=== PATIENT | male | born 1935 | race Caucasian/White ===

== ENCOUNTER 2017-04-26 06:11 | Inpatient (IN) | payer BC, MEDICARE ==
[2017-04-26] MEDS ORDERED: ASPIRIN 81 MG TABLET, CHEWABLE PO ONE (06:16)
[2017-04-26] MEDS ORDERED: NITROGLYCERIN/D5W 50 MG/250 ML RTUINJ IV ONE (06:17)
[2017-04-26] MEDS ORDERED: MAGNESIUM SULFATE/D5W 2 GM/200 ML RTUPB IV ONE (06:18)
[2017-04-26] MEDS ORDERED: MAGNESIUM SULFATE/D5W 1 GM/100 ML RTUPB IV ONE (06:31)
[2017-04-26 06:35] LABS: ABSOLUTE BASOPHILS # (AUTO) 0.1 10^3/uL (0.0-0.2); ABSOLUTE EOSINOPHILS # (AUTO) 0.3 10^3/uL (0.0-0.6); ABSOLUTE LYMPHOCYTES (AUTO) 2.4 10^3/uL (0.5-4.7); ABSOLUTE MONOCYTES (AUTO) 0.8 10^3/uL (0.1-1.4); ABSOLUTE NEUT (AUTO) 4.7 10^3/uL (1.7-8.2); BASOPHILS % (AUTO) 1.1 % (0-2); EOSINOPHILS % (AUTO) 3.9 % (0-6); HEMATOCRIT 47.6 % (37.9-51.0); HEMOGLOBIN 15.8 g/dL (13.5-17.0); LYMPHOCYTES % (AUTO) 28.6 % (13-45); MEAN CORPUSCULAR HEMOGLOBIN 31.6 pg (27.0-33.4); MEAN CORPUSCULAR HGB CONC 33.2 g/dL (32.0-36.0); MEAN CORPUSCULAR VOLUME 95 fl (80-97); MONOCYTES % (AUTO) 9.8 % (3-13); PLATELET COUNT 279 10^3/uL (150-450); RED BLOOD COUNT 5.01 10^6/uL (4.35-5.55); RED CELL DISTRIBUTION WIDTH 14.2 % (11.5-14.0); SEGMENTED NEUTROPHILS % (AUTO) 56.6 % (42-78); TOTAL CELLS COUNTED % (AUTO) 100 %; VENOUS BLOOD BASE EXCESS -4.4 mmol/L; VENOUS BLOOD HCO3 23.2 mmol/L (20-32); VENOUS BLOOD PCO2 51.9 mmHg (35-63); VENOUS BLOOD PH 7.27 (7.30-7.42); WHITE BLOOD COUNT 8.3 10^3/uL (4.0-10.5)
[2017-04-26 06:41] LABS: PROTHROMBIN TIME 12.8 SEC (11.4-15.4)
[2017-04-26 06:50] LABS: ALANINE AMINOTRANSFERASE 45 U/L (21-72); ALBUMIN 4.9 g/dL (3.5-5.0); ALKALINE PHOSPHATASE 88 U/L (38-126); ANION GAP 16 (5-19); ASPARTATE AMINO TRANSFERASE 31 U/L (17-59); BILIRUBIN,DIRECT 0.6 mg/dL (0.0-0.4); BLOOD UREA NITROGEN 27 mg/dL (7-20); CALCIUM 10.1 mg/dL (8.4-10.2); CARBON DIOXIDE 22 mmol/L (22-30); CHLORIDE 110 mmol/L (98-107); CREATINE KINASE 77 U/L (55-170); GLUCOSE 115 mg/dL (75-110); LIPASE 121.7 U/L (23-300); POTASSIUM 4.7 mmol/L (3.6-5.0); TOTAL PROTEIN 7.9 g/dL (6.3-8.2)
--- NOTE | 2017-04-26 06:51 | RADIOLOGY REPORT (SQ) ---
EXAM DESCRIPTION: CHEST SINGLE VIEW CLINICAL HISTORY: cxr COMPARISON: None. FINDINGS: Single frontal view of the chest. Positive thoracic aorta. Cardiomegaly. Pulmonary vascular congestion with bilateral interstitial opacities. No pneumothorax or definite pleural effusion. Leads overlie the chest. No acute osseous abnormality. Upper abdominal soft tissues are unremarkable. IMPRESSION: 1. Cardiomegaly with pulmonary vascular congestion and possible interstitial edema.
[2017-04-26 07:01] LABS: CREATINE KINASE MB 1.87 ng/mL (<4.55)
[2017-04-26 07:03] LABS: TROPONIN I 0.078 ng/mL
[2017-04-26] MEDS ORDERED: FUROSEMIDE INJ/PF 40 MG/4 ML SDV IV ONE (07:08)
[2017-04-26] MEDS ORDERED: FUROSEMIDE INJ/PF 20 MG/2 ML SDV IV ONE (07:09)
--- NOTE | 2017-04-26 07:40 | ER Document Report ---
ED General - General Chief Complaint: Respiratory Distress Stated Complaint: DIFFICULTY BREATHING Time Seen by Provider: 04/26/17 06:16 TRAVEL OUTSIDE OF THE [place] IN LAST 30 DAYS: No - HPI Patient complains to provider of: Respiratory distress Notes: Patient coming in for evaluation of respiratory distress. Patient according to EMS had shortness of breath over the last few days worse tonight. Patient had some wheezing was given a albuterol treatment according to EMS provider worsen after albuterol treatment. Upon my evaluation patient is tachypneic with retractions patient's blood pressure on the monitor and according to EMS was triple liver triple. Patient was able to indicate that he does not have any medical issues no chest pain at this time. Patient's lung sounds and presentation were most consistent with flash pulmonary edema therefore we initiated high-dose nitro significant respiratory distress much of the initial HPI was difficult to obtain along with BiPAP. Otherwise because of the patient' s - Related Data Allergies/Adverse Reactions: No Known Allergies Allergy (Verified 04/26/17 06:19) Past Medical History - Social History Smoking Status: Former Smoker Family History: Reviewed & Not Pertinent Patient has suicidal ideation: No Patient has homicidal ideation: No Renal/ Medical History: Denies: Hx Peritoneal Dialysis Review of Systems - Review of Systems Constitutional: No symptoms reported EENT: No symptoms reported Cardiovascular: No symptoms reported Respiratory: Short of breath Gastrointestinal: No symptoms reported Genitourinary: No symptoms reported Male Genitourinary: No symptoms reported Musculoskeletal: No symptoms reported Skin: No symptoms reported Hematologic/Lymphatic: No symptoms reported Neurological/Psychological: No symptoms reported -: Yes All other systems reviewed and negative Physical Exam - Vital signs Vitals: Resp 35 H 04/26/17 06:16 Interpretation: Hypertensive, Tachycardic, Tachypneic - General General appearance: Appears well, Alert - HEENT Head: Normocephalic, Atraumatic Eyes: Normal Pupils: PERRL - Respiratory Respiratory status: Respiratory distress, Tachypnea Chest status: Nontender Breath sounds: Rales, Rhonchi, Wheezing Chest palpation: Normal - Cardiovascular Rhythm: Regular Heart sounds: Normal auscultation Murmur: No - Abdominal Inspection: Normal Distension: No distension Bowel sounds: Normal Tenderness: Nontender Organomegaly: No organomegaly - Back Back: Normal, Nontender - Extremities General upper extremity: Normal inspection, Nontender, Normal color, Normal ROM , Normal temperature General lower extremity: Normal inspection, Nontender, Normal color, Normal ROM , Normal temperature, Normal weight bearing. No: Zafar's sign - Neurological Neuro grossly intact: Yes Cognition: Normal Orientation: AAOx4 Do Coma Scale Eye Opening: Spontaneous Do Coma Scale Verbal: Oriented Do Coma Scale Motor: Obeys Commands Do Coma Scale Total: 15 Speech: Normal Motor strength normal: LUE, RUE, LLE, RLE Sensory: Normal - Psychological Associated symptoms: Normal affect, Normal mood - Skin Skin Temperature: Warm Skin Moisture: Dry Skin Color: Normal Course - Re-evaluation Re-evalutation: 04/26/17 13:44 Patient is initial presentation initial HPI was consistent with flash pulmonary edema. Patient was given 1 mg of nitroglycerin IV push followed by BiPAP. Blood pressures decreased along with tachypnea and patient's heart rate. Patient breathing much better a few minutes after initiation of his treatment. Patient denies any past medical history no cardiac issues states history of smoking only medication the patient takes his omeprazole and Aleve. Patient is laboratory studies and chest x-ray were consistent with flash pulmonary edema patient was given a dose of Lasix prior to laboratory studies. Patient greatly improved however will admit the patient for further evaluation - Vital Signs Vital signs: Temp Pulse Resp BP Pulse Ox 97.9 F 86 16 123/52 L 91 L 04/26/17 12:27 04/26/17 12:27 04/26/17 12:27 04/26/17 12:27 04/26/17 12:27 - Laboratory Result Diagrams: 04/26/17 06:20 04/26/17 06:20 Laboratory results interpreted by me: 04/26/17 04/26/17 04/26/17 06:20 06:20 06:20 RDW 14.2 H VBG pH Sodium 148.0 H Chloride 110 H BUN 27 H Creatinine 1.51 H Est GFR ( Amer) 54 L Est GFR (Non-Af Amer) 45 L Glucose 115 H Direct Bilirubin 0.6 H NT-Pro-B Natriuret Pep 6700 H 04/26/17 06:20 RDW VBG pH 7.27 L Sodium Chloride BUN Creatinine Est GFR ( Amer) Est GFR (Non-Af Amer) Glucose Direct Bilirubin NT-Pro-B Natriuret Pep Critical Care Note - Critical Care Note Total time excluding time spent on procedures (mins): 35 Comments: multiple evaluation for patient with respiratory distress Discharge - Discharge Clinical Impression: Respiratory distress, Hypernatremia, CKD (chronic kidney disease), Hypertensive emergency, Dyspnea Pulmonary edema Qualifiers: Chronicity: acute Qualified Code(s): J81.0 - Acute pulmonary edema Condition: Good Disposition: ADMITTED INPATIENT Admitting Provider: Hospitalist - [facility] Admitted: [facility]
[2017-04-26] MEDS ORDERED: ACETAMINOPHEN 325 MG TABLET PO PRN (08:14)
[2017-04-26] MEDS ORDERED: HYDRALAZINE HCL INJ/PF 20 MG/1 ML SDV IV PRN (08:37)
--- NOTE | 2017-04-26 08:47 | PDOC H&P ---
History of Present Illness Admission Date/PCP: 04/26/2017 No PCP Patient complains of: Shortness of breath History of Present Illness: LAURENT TREJO is a 81 year old male with emergency room with shortness of breath for the last few days. Patient states that he cannot state exactly when it started but he reports that he normally takes long walks at home in the evening. Patient noted over the last 5-10 days that he has had to stop to take deep breaths because he became short of breath. Patient states that last night it became very bad and he sat up in bed due to severity of shortness of breath. Patient states that [place] and once he got there had difficulty breathing. Patient denied any chest pain did admit to abdominal discomfort patient states that he was transported to the hospital from work. Patient reports that he works 3 hours 3 times a week. Patient reports that he has not seen a PCP in over 10 years. Past Medical History Medical History: None EENT Medical History: Reports: None Neurological Medical History: Reports: None Endocrine Medical History: Reports: None Renal/ Medical History: Reports: None Malignancy Medical History: Reports: None GI Medical History: Reports: None Musculoskeltal Medical History: Reports: None Skin Medical History: Reports: None Psychiatric Medical History: Reports: None Traumatic Medical History: Reports: None Hematology: Reports: None Infectious Medical History: Reports: None Past Surgical History Past Surgical History: Reports: Appendectomy Social History Information Source: Patient Lives with: Alone Smoking Status: Former Smoker Frequency of Alcohol Use: None Hx Recreational Drug Use: No Hx Prescription Drug Abuse: No - Advance Directive Resuscitation Status: Full Code Family History Family History: CAD Parental Family History Reviewed: Yes Children Family History Reviewed: Yes Sibling(s) Family History Reviewed.: Yes Medication/Allergy Allergies/Adverse Reactions: No Known Allergies Allergy (Verified 04/26/17 06:19) Review of Systems Constitutional: ABSENT: chills, fever(s), headache(s), weight gain, weight loss Eyes: ABSENT: visual disturbances Ears: ABSENT: hearing changes Cardiovascular: PRESENT: dyspnea on exertion. ABSENT: chest pain, edema, orthropnea, palpitations Respiratory: PRESENT: dyspnea Gastrointestinal: PRESENT: abdominal pain Genitourinary: ABSENT: dysuria, hematuria Musculoskeletal: ABSENT: joint swelling Integumentary: ABSENT: rash, wounds Neurological: ABSENT: abnormal gait, abnormal speech, confusion, dizziness, focal weakness, syncope Psychiatric: ABSENT: anxiety, depression, homidical ideation, suicidal ideation Endocrine: ABSENT: cold intolerance, heat intolerance, polydipsia, polyuria Hematologic/Lymphatic: ABSENT: easy bleeding, easy bruising Physical Exam Vital Signs: Temp Pulse Resp BP Pulse Ox 97.6 F 18 152/87 H 93 04/26/17 06:22 04/26/17 08:31 04/26/17 08:31 04/26/17 08:31 Intake & Output 04/25/17 04/26/17 04/27/17 06:59 06:59 06:59 Weight 78.7 kg General appearance: PRESENT: no acute distress, well-developed, well-nourished Head exam: PRESENT: atraumatic, normocephalic Eye exam: PRESENT: conjunctiva pink, EOMI. ABSENT: scleral icterus Ear exam: PRESENT: normal external ear exam Mouth exam: PRESENT: moist, tongue midline Neck exam: ABSENT: carotid bruit, JVD, lymphadenopathy, thyromegaly Respiratory exam: PRESENT: other - Good breath sounds heard in upper lobes, patient diminished at bases, no wheezing heard Cardiovascular exam: PRESENT: RRR. ABSENT: diastolic murmur, rubs, systolic murmur Pulses: PRESENT: normal dorsalis pedis pul Vascular exam: PRESENT: normal capillary refill GI/Abdominal exam: PRESENT: normal bowel sounds, soft. ABSENT: distended, guarding, mass, organolmegaly, rebound, tenderness Rectal exam: PRESENT: deferred Extremities exam: PRESENT: full ROM. ABSENT: calf tenderness, clubbing, pedal edema Musculoskeletal exam: PRESENT: full ROM Neurological exam: PRESENT: alert, awake, oriented to person, oriented to place , oriented to time, oriented to situation, CN II-XII grossly intact. ABSENT: motor sensory deficit Psychiatric exam: PRESENT: appropriate affect, normal mood. ABSENT: homicidal ideation, suicidal ideation Skin exam: PRESENT: dry, intact, warm. ABSENT: cyanosis, rash Results Laboratory Results: 04/26/17 06:20 04/26/17 06:20 04/26/17 04/26/17 04/26/17 06:20 06:20 06:20 WBC 8.3 RBC 5.01 Hgb 15.8 Hct 47.6 MCV 95 MCH 31.6 MCHC 33.2 RDW 14.2 H Plt Count 279 Seg Neutrophils % 56.6 Lymphocytes % 28.6 Monocytes % 9.8 Eosinophils % 3.9 Basophils % 1.1 Absolute Neutrophils 4.7 Absolute Lymphocytes 2.4 Absolute Monocytes 0.8 Absolute Eosinophils 0.3 Absolute Basophils 0.1 VBG pH VBG pCO2 VBG HCO3 VBG Base Excess Sodium 148.0 H Potassium 4.7 Chloride 110 H Carbon Dioxide 22 Anion Gap 16 BUN 27 H Creatinine 1.51 H Est GFR ( Amer) 54 L Est GFR (Non-Af Amer) 45 L Glucose 115 H Lactic Acid 1.9 Calcium 10.1 Magnesium 2.1 Total Bilirubin 1.0 AST 31 ALT 45 Alkaline Phosphatase 88 Total Protein 7.9 Albumin 4.9 Lipase 121.7 04/26/17 06:20 WBC RBC Hgb Hct MCV MCH MCHC RDW Plt Count Seg Neutrophils % Lymphocytes % Monocytes % Eosinophils % Basophils % Absolute Neutrophils Absolute Lymphocytes Absolute Monocytes Absolute Eosinophils Absolute Basophils VBG pH 7.27 L VBG pCO2 51.9 VBG HCO3 23.2 VBG Base Excess -4.4 Sodium Potassium Chloride Carbon Dioxide Anion Gap BUN Creatinine Est GFR ( Amer) Est GFR (Non-Af Amer) Glucose Lactic Acid Calcium Magnesium Total Bilirubin AST ALT Alkaline Phosphatase Total Protein Albumin Lipase 04/26/17 04/26/17 06:20 06:20 Creatine Kinase 77 CK-MB (CK-2) 1.87 Troponin I 0.078 NT-Pro-B Natriuret Pep 6700 H Impressions: Chest X-Ray 04/26/17 06:16 IMPRESSION: 1. Cardiomegaly with pulmonary vascular congestion and possible interstitial edema. Assessment & Plan - Diagnosis (1) Hypertensive emergency Is this a current diagnosis for this admission?: Yes Plan: We will place patient on Norvasc, hydralazine, and metoprolol. Will order 2D echo. Patient was given Lasix in the emergency department. (2) Dyspnea Is this a current diagnosis for this admission?: Yes Plan: Most likely secondary to pulmonary edema: Patient was given Lasix in the emergency department. Patient satting on room air 95-99%. (3) Hypernatremia Is this a current diagnosis for this admission?: Yes Plan: We will follow-up on patient's labs in the morning. Patient did receive Lasix. Expect patient sodium to improve. (4) CKD (chronic kidney disease) Is this a current diagnosis for this admission?: Yes Plan: Most likely chronic kidney disease secondary to hypertension: We will check renal ultrasound. (5) Pulmonary edema Qualifiers: Chronicity: acute Qualified Code(s): J81.0 - Acute pulmonary edema Is this a current diagnosis for this admission?: Yes Plan: Secondary to poorly controlled hypertension: Patient was given Lasix in the emergency room. Patient's breathing has improved. 2D echo has been ordered and cardiology consult has been placed. Patient noted to have elevated BNP however patient has not been hospitalized before therefore unsure of what patient's baseline BNP is. Patient also been admitted for hypertensive emergency and pulmonary edema. (6) Respiratory distress Is this a current diagnosis for this admission?: Yes Plan: Secondary to pulmonary edema related to poorly controlled hypertension: Patient was given Lasix in the emergency department patient is satting 95% on room air (7) Cardiomegaly Is this a current diagnosis for this admission?: Yes Plan: Cardiology has been consulted will order for stat 2D echo. (8) DVT prophylaxis Is this a current diagnosis for this admission?: Yes Plan: SCD - Time Time Spent: 30 to 50 Minutes
[2017-04-26] MEDS ORDERED: AMLODIPINE BESYLATE 10 MG TABLET PO ONE (09:30)
[2017-04-26] MEDS ORDERED: METOPROLOL TARTRATE 25 MG TABLET PO SCH ×2 (10:00)
--- NOTE | 2017-04-26 10:34 | EKG REPORT ---
SEVERITY:- ABNORMAL ECG - SINUS TACHYCARDIA LVH WITH SECONDARY REPOLARIZATION ABNORMALITY : Confirmed by: Nyasia Go 26-Apr-2017 10:33:23
--- NOTE | 2017-04-26 10:45 | RADIOLOGY REPORT (SQ) ---
EXAM DESCRIPTION: U/S RETROPERITON (RENAL/AORTA) COMPLETED DATE/TIME: 04/26/2017 10:35 am REASON FOR STUDY: Hypertension and elevated Renal function COMPARISON: None. TECHNIQUE: Dynamic and static grayscale images acquired of the kidneys and bladder and recorded on P ACS. Additional selected color Doppler and spectral images recorded. LIMITATIONS: None. FINDINGS: RIGHT KIDNEY: Normal size. Normal echogenicity. No solid or suspicious masses. No hydronep hrosis. No calcifications. LEFT KIDNEY: Normal size. Normal echogenicity. No solid or suspicious masses. No hydronephrosis. No calcifications. BLADDER: No masses. OTHER FINDINGS: No other significant finding. IMPRESSION: NORMAL RENAL AND BLADDER ULTRASOUND. TECHNICAL DOCUMENTATION: JOB ID: [id number] [employer]- All Rights Reserved Reading location - IP/workstation name: [email or web address]
--- NOTE | 2017-04-26 13:07 | XCELERA REPORT ---
[address] [address] Transthoracic Echocardiogram Report Name: LAURENT TREJO Age: 81 yrs Gender: Male : 1935 Patient Status: Inpatient Patient Location: [place] [address]^A Study Date: 04/26/2017 09:39 AM Height: 70 in Weight: 173 lb BSA: 2.0 m2 Procedure: A complete two-dimensional transthoracic echocardiogram was performed (2D, M-mode, spectral and color flow Doppler). The study was technically adequate with some images being suboptimal in quality. Reason For Study: Dyspnea Ordering Physician: ABEL MUNOZ Performed By: Misti Hu Interpretation Summary Left ventricular systolic function is moderately reduced. The Ejection Fraction estimate is 35-40% The left ventricle is grossly normal size. Doppler measurements suggest pseudonormalized left ventricular relaxation, which is associated with grade II/IV or mild to moderate diastolic dysfunction There is moderate global hypokinesis of the left ventricle. The right ventricle is borderline dilated. The right ventricular systolic function is normal. The left atrium is mildly dilated. The right atrium is normal in size Interarterial septum not well visualized and not well dopplered. Cannot comment on ASD/PFO presence. There is a mild amount of mitral regurgitation There is no mitral valve stenosis. There is no aortic valve stenosis There is a mild amount of aortic regurgitation There is a trace to mild amount of tricuspid regurgitation There is mild pulmonary hypertension by echo Right ventricular systolic pressure is estimated to be elevated at 30- 40mmHg. The aortic root is not well visualized but is probably normal size. The inferior vena cava appeared normal and decreased > 50% with respiration (RAP 5-10 mmHg) There is no pericardial effusion. MMode/2D Measurements & Calculations RVDd: 3.6 cm LVIDd: 4.7 cm FS: 17.4 % Ao root diam: 3.0 cm IVSd: 0.99 cm LVIDs: 3.9 cm EDV(Teich): 104.0 ml LVPWd: 1.0 cm ESV(Teich): 66.2 ml Ao root area: 6.9 cm2 EF(Teich): 36.3 % LA dimension: 4.1 cm Doppler Measurements & Calculations MV E max sushila: MV P1/2t max sushila: Ao V2 max: AI max sushila: 101.2 cm/sec 101.7 cm/sec 120.1 cm/sec 419.4 cm/sec MV A max sushila: MV P1/2t: 62.2 msec Ao max PG: AI max P.9 cm/sec 5.8 mmHg 70.4 mmHg MV E/A: 1.3 MVA(P1/2t): 3.5 cm2 AI dec slope: MV dec slope: 479.0 cm/sec2 222.7 cm/sec2 MV dec time: AI P1/2t: 0.18 sec 551.5 msec LV V1 max PG: PA V2 max: TR max sushila: 3.6 mmHg 84.4 cm/sec 271.5 cm/sec LV V1 max: PA max P.8 mmHg TR max P.3 cm/sec 29.5 mmHg Left Ventricle The left ventricle is grossly normal size. Left ventricular systolic function is moderately reduced. The Ejection Fraction estimate is 35-40%. Doppler measurements suggest pseudonormalized left ventricular relaxation, which is associated with grade II/IV or mild to moderate diastolic dysfunction. There is moderate global hypokinesis of the left ventricle. Right Ventricle The right ventricle is borderline dilated. There is normal right ventricular wall thickness. The right ventricular systolic function is normal. Atria The right atrium is normal in size. The left atrium is mildly dilated. Interarterial septum not well visualized and not well dopplered. Cannot comment on ASD/PFO presence. Mitral Valve The mitral valve is grossly normal. There is no mitral valve stenosis. There is a mild amount of mitral regurgitation. Aortic Valve The aortic valve opens well. There is no aortic valve stenosis. There is a mild amount of aortic regurgitation. Tricuspid Valve The tricuspid valve is not well visualized, but is grossly normal. There is no tricuspid stenosis. There is a trace to mild amount of tricuspid regurgitation. There is mild pulmonary hypertension by echo. Right ventricular systolic pressure is estimated to be elevated at 30-40mmHg. Pulmonic Valve The pulmonic valve is not well visualized. Great Vessels The aortic root is not well visualized but is probably normal size. The inferior vena cava appeared normal and decreased > 50% with respiration (RAP 5-10 mmHg). Effusions There is no pericardial effusion. : ABEL MUNOZ Shyamal
[2017-04-26] MEDS: HYDRALAZINE HCL 50 MG TABLET PO SCH ×2 (14:54→22:01)
--- NOTE | 2017-04-26 19:37 | PDOC CONSULTATION ---
Consultation Consult Date: 04/26/17 Attending physician:: ABEL MUNOZ Consult reason:: HTN History of Present Illness Admission Date/PCP: 04/26/17 08:36 Patient complains of: Shortness of breath History of Present Illness: LAURENT TREJO is a 81 year old male with emergency room with shortness of breath for the last few days. Patient states that he cannot state exactly when it started but he reports that he normally takes long walks at home in the evening. Patient noted over the last 5-10 days that he has had to stop to take deep breaths because he became short of breath. Patient states that last night it became very bad and he sat up in bed due to severity of shortness of breath. Patient states that [place] and once he got there had difficulty breathing. Patient denied any chest pain did admit to abdominal discomfort patient states that he was transported to the hospital from work. Patient reports that he works 3 hours 3 times a week. Patient reports that he has not seen a PCP in over 10 years. This history was reviewed and confirmed. Patient denied any prior history of heart problems. He denied any prior history of myocardial infarction, congestive heart failure, strokes, mini strokes, sustained palpitations, syncope , near syncope. Patient has no close relatives, he is and has no children. His friend takes care of him. Past Medical History EENT Medical History: Reports: None Neurological Medical History: Reports: None Endocrine Medical History: Reports: None Renal/ Medical History: Reports: None Malignancy Medical History: Reports: None GI Medical History: Reports: None Musculoskeltal Medical History: Reports: None Skin Medical History: Reports: None Psychiatric Medical History: Reports: None Traumatic Medical History: Reports: None Hematology: Reports: None Infectious Medical History: Reports: None Past Surgical History Past Surgical History: Reports: Appendectomy Social History Information Source: Patient Lives with: Alone Smoking Status: Former Smoker Number of Years Smokin Last Time Smoked: 2007 Frequency of Alcohol Use: None Hx Recreational Drug Use: No Drugs: None Hx Prescription Drug Abuse: No - Advance Directive Resuscitation Status: Full Code Surrogate healthcare decision maker:: Patient's friend Family History Family History: CAD Parental Family History Reviewed: Yes Children Family History Reviewed: Yes Sibling(s) Family History Reviewed.: Yes Medication/Allergy Home Medications: No Home Medications 03/08/18 Allergies/Adverse Reactions: No Known Allergies Allergy (Verified 04/26/17 06:19) Review of Systems Review of Systems: Please see history of present illness and past medical history as wall. Constitutional: No fever or chills reported. Head : No recent chronic headaches, recent head injury. Eyes: No recent eye pain, diplopia, redness, discharge, acute visual changes. Ears: No recent chronic ear pain, acute hearing loss, ear discharge. Oral cavity: No recent ulcerations, bleeding, oral cavity discomfort. Neck: No recent acute neck pain reported. Hematologic: No recent easy bruising or bleeding or hematologic malignancy reported. Lymphatic: No recent lymphatic malignancy, chronic lymphadenopathy reported yet Cardiovascular system review: See history of present illness. Respiratory system review: No recent chronic cough, hemoptysis, blood clots in the lungs reported. Shortness of breath on exertion Gastrointestinal system review: Negative for any recent acute or chronic abdominal pain, hematemesis, melena, recent change in bowel habits. Genitourinary system review: No recent acute or chronic hematuria, flank pain, UTI etc. reported. Skin system review: Negative for any recent abnormal bruising, no rash, no pruritus reported. Neurologic: No prior history of strokes, mini strokes, seizure disorder. Psychologic: No history of major psychosis or major depression reported. Musculoskeletal: Minor aches and pains reported. No acute joint swelling reported. Endocrine: No recent polyuria, polydipsia, recent heat or cold intolerance. Physical Exam Vital Signs: Temp Pulse Resp BP Pulse Ox 98.4 F 100 18 167/99 H 98 04/26/17 10:49 04/26/17 10:49 04/26/17 10:49 04/26/17 10:49 04/26/17 10:49 Intake & Output 04/25/17 04/26/17 04/27/17 06:59 06:59 06:59 Weight 75.7 kg Exam: GENERAL: well-nourished and in no acute distress. Alert and oriented x3 HEAD: Atraumatic, normocephalic. EYES: Pupils equal round and reactive to light, extraocular movements intact, sclera anicteric, conjunctiva are normal. ENT: TMs normal, nares patent, oropharynx clear without exudates. Moist mucous membranes. No oral ulcerations or bleeding gums noted NECK: supple without lymphadenopathy. Trachea is central. No cervical or axillary lymphadenopathy noted. Carotids are 2+, JVD WNL LUNGS: Respiration seems nonlabored, no significant accessory muscle action noted. Bibasilar fine crackles with few a scattered wheezes rales or rhonchi noted. No significant dullness noted on percussion. CHEST: Palpation of the chest wall shows no significant chest wall tenderness. No other significant abnormalities noted. HEART: [place] [employer], No PSH, 1/6 NELIDA aortic area, 1/6 jeffries systolic murmur mitral area, no rubs, no gallops. ABDOMEN: Soft, no significant tenderness appreciated, normoactive bowel sounds. No guarding, no rebound. No rigidity noted . No masses appreciated. EXTREMITIES: Pedal pulses are 1-2+, no calf tenderness noted. No clubbing or cyanosis.trace to 1+ pedal edema noted NEUROLOGICAL: Focused neurological exam showed no significant neurologic deficit. Normal speech, no focal weakness appreciated. PSYCH: Normal mood, normal affect. Judgment and insight within normal limits. SKIN: No significant ecchymosis, skin is noted to be warm. MUSCULOSKELETAL EXAM: No significant acute joint swelling noted. Results EKG Comments: Sinus tachycardia, LVH with minor nonspecific ST segment changes Impressions: Renal Ultrasound 04/26/17 00:00 IMPRESSION: NORMAL RENAL AND BLADDER ULTRASOUND. Chest X-Ray 04/26/17 06:16 IMPRESSION: 1. Cardiomegaly with pulmonary vascular congestion and possible interstitial edema. Assessment & Plan - Diagnosis (1) Respiratory distress Is this a current diagnosis for this admission?: Yes (2) Hypertensive emergency Is this a current diagnosis for this admission?: Yes (3) Elevated troponin I level Is this a current diagnosis for this admission?: Yes (4) CKD (chronic kidney disease) Qualifiers: Chronic kidney disease stage: stage 3 (moderate) Qualified Code(s): N18.3 - Chronic kidney disease, stage 3 (moderate) Is this a current diagnosis for this admission?: Yes (5) Cardiomegaly Is this a current diagnosis for this admission?: Yes (6) Dyspnea Is this a current diagnosis for this admission?: Yes (7) Pulmonary edema Qualifiers: Chronicity: acute Qualified Code(s): J81.0 - Acute pulmonary edema Is this a current diagnosis for this admission?: Yes - Notes Notes: Respiratory distress patient presents with acute respiratory distress most likely related to acute cardiogenic pulmonary edema. Possible causes include severe hypertension, cardiac ischemia, cardiac dysrhythmia including paroxysmal atrial fibrillation etc. are in the differential diagnosis. At this point agree with IV diuretics, obtaining 2D echocardiogram and good control of blood pressure. Initial cardiac enzymes are indeterminate. Recommend obtaining further enzymes. Hypertensive emergency: Blood pressure now under better control. Beta-tomy and angiotensin receptor blockers/DEMETRIO inhibitors and beta medications. Elevated troponin I: Most likely related to severe hypertension and CHF. However at patient's age, it may be worthwhile to consider a nuclear stress test prior to discharge or early as an outpatient. Chronic kidney disease: Patient seems to have a stage III chronic kidney disease. Continue monitoring it. Dyspnea: Possibly combination of COPD, CHF, possibly ischemia equivalent symptom. Pulmonary edema: See discussion under acute respiratory failure. - Time Time Spent: 30 to 50 Minutes - CODE STATUS was discussed, patient remains full code. Surrogate decision-maker unchanged. Multiple medical problems were addressed. More than 50% of the time spent coordinating care, discussing management plans with involved caregivers. Management plans discussed with involved personnels. Medical decision making was of moderate to high complexity , patient's has multiple comorbidities. Medications reviewed and adjusted accordingly: Yes
[2017-04-26 20:50] LABS: CHOLESTEROL 244.85 mg/dL (0-200); TRIGLYCERIDES 77 mg/dL (<150)
[2017-04-26 21:01] LABS: DIRECT LDL 171 mg/dL (<100)
[2017-04-26] MEDS ORDERED: ATORVASTATIN CALCIUM 40 MG TABLET PO SCH (22:00)
[2017-04-26] MEDS: CARVEDILOL 6.25 MG TABLET PO SCH (22:01)
[2017-04-26] MEDS: ATORVASTATIN CALCIUM 20 MG TABLET PO SCH (22:01)
[2017-04-27] MEDS: HYDRALAZINE HCL 50 MG TABLET PO SCH ×3 (05:47→23:18)
[2017-04-27] MEDS: LANSOPRAZOLE 30 MG TAB.RAP.DR PO SCH (05:47)
[2017-04-27 06:50] LABS: ABSOLUTE EOSINOPHILS # (AUTO) 0.1 10^3/uL (0.0-0.6); ABSOLUTE LYMPHOCYTES (AUTO) 0.9 10^3/uL (0.5-4.7); ABSOLUTE MONOCYTES (AUTO) 0.6 10^3/uL (0.1-1.4); ABSOLUTE NEUT (AUTO) 4.7 10^3/uL (1.7-8.2); BASOPHILS % (AUTO) 0.7 % (0-2); HEMATOCRIT 38.7 % (37.9-51.0); LYMPHOCYTES % (AUTO) 13.8 % (13-45); MEAN CORPUSCULAR HEMOGLOBIN 31.7 pg (27.0-33.4); MEAN CORPUSCULAR HGB CONC 33.9 g/dL (32.0-36.0); MEAN CORPUSCULAR VOLUME 94 fl (80-97); MONOCYTES % (AUTO) 9.3 % (3-13); PLATELET COUNT 206 10^3/uL (150-450); RED BLOOD COUNT 4.14 10^6/uL (4.35-5.55); RED CELL DISTRIBUTION WIDTH 14.6 % (11.5-14.0); SEGMENTED NEUTROPHILS % (AUTO) 75.2 % (42-78); TOTAL CELLS COUNTED % (AUTO) 100 %; WHITE BLOOD COUNT 6.3 10^3/uL (4.0-10.5)
[2017-04-27 06:51] LABS: HEMOGLOBIN 13.1 g/dL (13.5-17.0)
[2017-04-27 07:15] LABS: ALANINE AMINOTRANSFERASE 33 U/L (21-72); ALBUMIN 3.6 g/dL (3.5-5.0); ALKALINE PHOSPHATASE 62 U/L (38-126); ANION GAP 9 (5-19); ASPARTATE AMINO TRANSFERASE 23 U/L (17-59); BILIRUBIN,DIRECT 0.2 mg/dL (0.0-0.4); BILIRUBIN,TOTAL 1.1 mg/dL (0.2-1.3); BLOOD UREA NITROGEN 28 mg/dL (7-20); CALCIUM 9.6 mg/dL (8.4-10.2); CARBON DIOXIDE 21 mmol/L (22-30); CHLORIDE 112 mmol/L (98-107); CHOLESTEROL 162.52 mg/dL (0-200); GLUCOSE 99 mg/dL (75-110); POTASSIUM 4.3 mmol/L (3.6-5.0); TOTAL PROTEIN 5.5 g/dL (6.3-8.2); TRIGLYCERIDES 82 mg/dL (<150)
[2017-04-27 07:27] LABS: DIRECT LDL 113 mg/dL (<100)
[2017-04-27 07:31] LABS: FREE T4 (FREE THYROXINE) 1.07 ng/dL (0.78-2.19)
[2017-04-27 07:45] LABS: THYROID STIMULATING HORMONE 2.45 uIU/mL (0.47-4.68)
--- NOTE | 2017-04-27 08:42 | EKG REPORT ---
SEVERITY:- ABNORMAL ECG - SINUS RHYTHM PROBABLE LVH WITH SECONDARY REPOL ABNRM : Confirmed by: Nyasia Go 27-Apr-2017 08:41:32
[2017-04-27] MEDS ORDERED: LISINOPRIL 5 MG TABLET PO ONE ×2 (09:29→10:15)
[2017-04-27] MEDS ORDERED: LISINOPRIL 5 MG TABLET PO SCH (09:30)
--- NOTE | 2017-04-27 09:46 | PDOC PROGRESS REPORT ---
Subjective Progress Note for:: 04/27/17 Subjective:: Patient reports that he is feeling much better. Patient states that he is no longer experiencing shortness of breath. Reason For Visit: HYPERTENSIVE EMERGENCY,DYSPNEA SECONDARY TO Physical Exam Vital Signs: Temp Pulse Resp BP Pulse Ox 97.4 F 81 12 123/54 L 96 04/27/17 07:41 04/27/17 07:41 04/27/17 07:41 04/27/17 07:41 04/27/17 08:52 Intake & Output 04/26/17 04/27/17 04/28/17 06:59 06:59 06:59 Intake Total 290 Output Total 125 Balance 165 Weight 76.7 kg General appearance: PRESENT: no acute distress, well-developed, well-nourished Head exam: PRESENT: atraumatic, normocephalic Eye exam: PRESENT: conjunctiva pink, EOMI. ABSENT: scleral icterus Ear exam: PRESENT: normal external ear exam Mouth exam: PRESENT: moist, tongue midline Neck exam: ABSENT: carotid bruit, JVD, lymphadenopathy, thyromegaly Respiratory exam: PRESENT: clear to auscultation larissa. ABSENT: rales, rhonchi, wheezes Cardiovascular exam: PRESENT: RRR. ABSENT: diastolic murmur, rubs, systolic murmur Pulses: PRESENT: normal dorsalis pedis pul Vascular exam: PRESENT: normal capillary refill GI/Abdominal exam: PRESENT: normal bowel sounds, soft. ABSENT: distended, guarding, mass, organolmegaly, rebound, tenderness Rectal exam: PRESENT: deferred Extremities exam: PRESENT: full ROM. ABSENT: calf tenderness, clubbing, pedal edema Neurological exam: PRESENT: alert, awake, oriented to person, oriented to place , oriented to time, oriented to situation, CN II-XII grossly intact. ABSENT: motor sensory deficit Psychiatric exam: PRESENT: appropriate affect, normal mood. ABSENT: homicidal ideation, suicidal ideation Skin exam: PRESENT: dry, intact, warm. ABSENT: cyanosis, rash Results Laboratory Results: 04/27/17 06:21 04/27/17 06:21 04/27/17 04/27/17 04/27/17 04:10 04:10 04:10 WBC Cancelled RBC Cancelled Hgb Cancelled Hct Cancelled MCV Cancelled MCH Cancelled MCHC Cancelled RDW Cancelled Plt Count Cancelled Seg Neutrophils % Cancelled Lymphocytes % Cancelled Monocytes % Cancelled Eosinophils % Cancelled Basophils % Cancelled Absolute Neutrophils Cancelled Absolute Lymphocytes Cancelled Absolute Monocytes Cancelled Absolute Eosinophils Cancelled Absolute Basophils Cancelled Sodium Cancelled Potassium Cancelled Chloride Cancelled Carbon Dioxide Cancelled Anion Gap Cancelled BUN Cancelled Creatinine Cancelled Est GFR ( Amer) Cancelled Est GFR (Non-Af Amer) Cancelled Glucose Cancelled Calcium Cancelled Magnesium Cancelled Total Bilirubin Cancelled AST Cancelled ALT Cancelled Alkaline Phosphatase Cancelled Total Protein Cancelled Albumin Cancelled Triglycerides Cancelled Cholesterol Cancelled LDL Cholesterol Direct Cancelled VLDL Cholesterol Cancelled HDL Cholesterol Cancelled TSH Cancelled Free T4 Cancelled 04/27/17 04/27/17 04/27/17 06:21 06:21 06:21 WBC 6.3 RBC 4.14 L Hgb 13.1 L D Hct 38.7 MCV 94 MCH 31.7 MCHC 33.9 RDW 14.6 H Plt Count 206 Seg Neutrophils % 75.2 Lymphocytes % 13.8 Monocytes % 9.3 Eosinophils % 1.0 Basophils % 0.7 Absolute Neutrophils 4.7 Absolute Lymphocytes 0.9 Absolute Monocytes 0.6 Absolute Eosinophils 0.1 Absolute Basophils 0.0 Sodium 142.0 Potassium 4.3 Chloride 112 H Carbon Dioxide 21 L Anion Gap 9 BUN 28 H Creatinine 1.50 H Est GFR ( Amer) 54 L Est GFR (Non-Af Amer) 45 L Glucose 99 Calcium 9.6 Magnesium 2.2 Total Bilirubin 1.1 AST 23 ALT 33 Alkaline Phosphatase 62 Total Protein 5.5 L Albumin 3.6 Triglycerides 82 Cholesterol 162.52 LDL Cholesterol Direct 113 H VLDL Cholesterol 16.0 HDL Cholesterol 41 TSH 2.45 Free T4 1.07 04/26/17 15:25 Troponin I 0.094 Impressions: Renal Ultrasound 04/26/17 00:00 IMPRESSION: NORMAL RENAL AND BLADDER ULTRASOUND. Chest X-Ray 04/26/17 06:16 IMPRESSION: 1. Cardiomegaly with pulmonary vascular congestion and possible interstitial edema. Assessment & Plan - Diagnosis (1) Acute on chronic combined systolic and diastolic CHF (congestive heart failure) Is this a current diagnosis for this admission?: Yes Plan: EF of 35%. Patient on 2D echo was found to have systolic and diastolic congestive heart failure. Patient has been placed on metoprolol and placed on low-dose lisinopril. Cardiology most likely will adjust these medications however will place patient on DEMETRIO inhibitor. (2) Hypertensive emergency Is this a current diagnosis for this admission?: Yes Plan: We will continue patient on hydralazine, carvedilol, and Lasix. Will add low- dose lisinopril. (3) Dyspnea Is this a current diagnosis for this admission?: Yes Plan: Most likely secondary to pulmonary edema: We will continue patient's Lasix. (4) Hypernatremia Is this a current diagnosis for this admission?: Yes Plan: Resolved. Most likely secondary to lab error. (5) CKD (chronic kidney disease) Qualifiers: Chronic kidney disease stage: stage 3 (moderate) Qualified Code(s): N18.3 - Chronic kidney disease, stage 3 (moderate) Is this a current diagnosis for this admission?: Yes Plan: Most likely chronic kidney disease secondary to hypertension: Normal renal function and bladder. (6) Pulmonary edema Qualifiers: Chronicity: acute Qualified Code(s): J81.0 - Acute pulmonary edema Is this a current diagnosis for this admission?: Yes Plan: Secondary to poorly controlled hypertension and acute on chronic systolic diastolic congestive heart failure with EF of 35%: Continue diuretics. (7) Respiratory distress Is this a current diagnosis for this admission?: Yes Plan: Secondary to pulmonary edema related to poorly controlled hypertension: We will continue patient on Lasix. (8) Cardiomegaly Is this a current diagnosis for this admission?: Yes Plan: Secondary to on chronic diastolic congestive heart failure with EF of 35%: Will continue on carvedilol, lisinopril and Lasix (9) DVT prophylaxis Is this a current diagnosis for this admission?: Yes - Time Time Spent with patient: 25-34 minutes
[2017-04-27] MEDS ORDERED: FUROSEMIDE 40 MG TABLET PO SCH (10:00)
[2017-04-27] MEDS: CARVEDILOL 6.25 MG TABLET PO SCH ×2 (10:58→23:18)
--- NOTE | 2017-04-27 11:22 | PDOC PROGRESS REPORT ---
Subjective Progress Note for:: 04/27/17 Subjective:: Patient seems to be doing better with gradual improvement. Pt is denying any chest arm or neck discomfort. Patient denying any PND, orthopnea. Patient denied any sustained palpitations, dizziness, syncope, near syncope. Patient denying any fever chills. Patient denying any other significant discomfort. Patient is maintaining sinus rhythm. Patient complaining of dizziness this morning. Review of systems: Rest review of systems negative. Medications: Medications have been reviewed. Reason For Visit: HYPERTENSIVE EMERGENCY,DYSPNEA SECONDARY TO Physical Exam Vital Signs: Temp Pulse Resp BP Pulse Ox 97.4 F 81 12 123/54 L 96 04/27/17 07:41 04/27/17 07:41 04/27/17 07:41 04/27/17 07:41 04/27/17 08:52 Intake & Output 04/26/17 04/27/17 04/28/17 06:59 06:59 06:59 Intake Total 290 Output Total 125 Balance 165 Weight 76.7 kg Exam: GENERAL: well-nourished and in no acute distress. Alert and oriented x3 HEAD: Atraumatic, normocephalic. EYES: Pupils equal round and reactive to light, extraocular movements intact, sclera anicteric, conjunctiva are normal. ENT: TMs normal, nares patent, oropharynx clear without exudates. Moist mucous membranes. No oral ulcerations or bleeding gums noted NECK: supple without lymphadenopathy. Trachea is central. No cervical or axillary lymphadenopathy noted. Carotids are 2+, JVD WNL LUNGS: Respiration seems nonlabored, no significant accessory muscle action noted. Bibasilar fine crackles noted.. No wheezes rales or rhonchi noted. No significant dullness noted on percussion. CHEST: Palpation of the chest wall shows no significant chest wall tenderness. No other significant abnormalities noted. HEART: [place] [employer], No PSH, 2/6 NELIDA aortic area, 1/6 jeffries systolic murmur mitral area, no rubs, no gallops. ABDOMEN: Soft, no significant tenderness appreciated, normoactive bowel sounds. No guarding, no rebound. No rigidity noted . No masses appreciated. EXTREMITIES: Pedal pulses are 1-2+, no calf tenderness noted. No clubbing or cyanosis.trace to 1+ pedal edema noted NEUROLOGICAL: Focused neurological exam showed no significant neurologic deficit. Normal speech, no focal weakness appreciated. PSYCH: Normal mood, normal affect. Judgment and insight within normal limits. SKIN: No significant ecchymosis, skin is noted to be warm. MUSCULOSKELETAL EXAM: No significant acute joint swelling noted. Results Laboratory Results: 04/27/17 06:21 04/27/17 06:21 04/27/17 04/27/17 04/27/17 04:10 04:10 04:10 WBC Cancelled RBC Cancelled Hgb Cancelled Hct Cancelled MCV Cancelled MCH Cancelled MCHC Cancelled RDW Cancelled Plt Count Cancelled Seg Neutrophils % Cancelled Lymphocytes % Cancelled Monocytes % Cancelled Eosinophils % Cancelled Basophils % Cancelled Absolute Neutrophils Cancelled Absolute Lymphocytes Cancelled Absolute Monocytes Cancelled Absolute Eosinophils Cancelled Absolute Basophils Cancelled Sodium Cancelled Potassium Cancelled Chloride Cancelled Carbon Dioxide Cancelled Anion Gap Cancelled BUN Cancelled Creatinine Cancelled Est GFR ( Amer) Cancelled Est GFR (Non-Af Amer) Cancelled Glucose Cancelled Calcium Cancelled Magnesium Cancelled Total Bilirubin Cancelled AST Cancelled ALT Cancelled Alkaline Phosphatase Cancelled Total Protein Cancelled Albumin Cancelled Triglycerides Cancelled Cholesterol Cancelled LDL Cholesterol Direct Cancelled VLDL Cholesterol Cancelled HDL Cholesterol Cancelled TSH Cancelled Free T4 Cancelled 04/27/17 04/27/17 04/27/17 06:21 06:21 06:21 WBC 6.3 RBC 4.14 L Hgb 13.1 L D Hct 38.7 MCV 94 MCH 31.7 MCHC 33.9 RDW 14.6 H Plt Count 206 Seg Neutrophils % 75.2 Lymphocytes % 13.8 Monocytes % 9.3 Eosinophils % 1.0 Basophils % 0.7 Absolute Neutrophils 4.7 Absolute Lymphocytes 0.9 Absolute Monocytes 0.6 Absolute Eosinophils 0.1 Absolute Basophils 0.0 Sodium 142.0 Potassium 4.3 Chloride 112 H Carbon Dioxide 21 L Anion Gap 9 BUN 28 H Creatinine 1.50 H Est GFR ( Amer) 54 L Est GFR (Non-Af Amer) 45 L Glucose 99 Calcium 9.6 Magnesium 2.2 Total Bilirubin 1.1 AST 23 ALT 33 Alkaline Phosphatase 62 Total Protein 5.5 L Albumin 3.6 Triglycerides 82 Cholesterol 162.52 LDL Cholesterol Direct 113 H VLDL Cholesterol 16.0 HDL Cholesterol 41 TSH 2.45 Free T4 1.07 04/26/17 15:25 Troponin I 0.094 EKG Comments: Sinus rhythm with occasional APCs and VPCs noted. Impressions: Renal Ultrasound 04/26/17 00:00 IMPRESSION: NORMAL RENAL AND BLADDER ULTRASOUND. Chest X-Ray 04/26/17 06:16 IMPRESSION: 1. Cardiomegaly with pulmonary vascular congestion and possible interstitial edema. Assessment & Plan - Diagnosis (1) Respiratory distress Is this a current diagnosis for this admission?: Yes (2) Hypertensive emergency Is this a current diagnosis for this admission?: Yes (3) Elevated troponin I level Is this a current diagnosis for this admission?: Yes (4) CKD (chronic kidney disease) Qualifiers: Chronic kidney disease stage: stage 3 (moderate) Qualified Code(s): N18.3 - Chronic kidney disease, stage 3 (moderate) Is this a current diagnosis for this admission?: Yes (5) Cardiomegaly Is this a current diagnosis for this admission?: Yes (6) Dyspnea Is this a current diagnosis for this admission?: Yes (7) Pulmonary edema Qualifiers: Chronicity: acute Qualified Code(s): J81.0 - Acute pulmonary edema Is this a current diagnosis for this admission?: Yes - Notes Notes: 2D echo results reviewed with the patient. It shows moderately depressed LVEF. Patient scheduled for a stress test tomorrow. Risk benefits were discussed. Respiratory distress: Patient presents with acute respiratory distress most likely related to acute cardiogenic pulmonary edema. Possible causes include severe hypertension, cardiac ischemia, cardiac dysrhythmia including paroxysmal atrial fibrillation etc. are in the differential diagnosis. At this point agree with IV diuretics, Initial cardiac enzymes are indeterminate. Recommend obtaining further enzymes. Hypertensive emergency: Blood pressure now under better control. Currently maintained carvedilol at 6.25 mg p.o. every 12 and lisinopril at 10 mg p.o. daily. Elevated troponin I: Most likely related to severe hypertension and CHF. Nuclear stress test scheduled for tomorrow. Chronic kidney disease: Patient seems to have a stage III chronic kidney disease. Continue monitoring it. Dyspnea: Possibly combination of COPD, CHF, possibly ischemia equivalent symptom. Pulmonary edema: See discussion under acute respiratory failure. - Time Time with patient: Greater than 35 minutes - CODE STATUS was discussed, patient remains full code. Surrogate decision-maker unchanged. Multiple medical problems were addressed. More than 50% of the time spent coordinating care, discussing management plans with involved caregivers. Management plans discussed with involved personnels. Medical decision making was of moderate to high complexity, patient's has multiple comorbidities. Medications reviewed and adjusted accordingly: Yes
[2017-04-27] MEDS: ATORVASTATIN CALCIUM 20 MG TABLET PO SCH (23:17)
[2017-04-28] MEDS: LANSOPRAZOLE 30 MG TAB.RAP.DR PO SCH (05:29)
[2017-04-28] MEDS: HYDRALAZINE HCL 50 MG TABLET PO SCH (05:29)
[2017-04-28 06:35] LABS: ALANINE AMINOTRANSFERASE 40 U/L (21-72); ALBUMIN 3.5 g/dL (3.5-5.0); ALKALINE PHOSPHATASE 57 U/L (38-126); ANION GAP 11 (5-19); ASPARTATE AMINO TRANSFERASE 24 U/L (17-59); BILIRUBIN,DIRECT 0.3 mg/dL (0.0-0.4); BLOOD UREA NITROGEN 34 mg/dL (7-20); CALCIUM 9.1 mg/dL (8.4-10.2); CARBON DIOXIDE 21 mmol/L (22-30); CHLORIDE 110 mmol/L (98-107); GLUCOSE 99 mg/dL (75-110); SODIUM 142.2 mmol/L (137-145); TOTAL PROTEIN 5.4 g/dL (6.3-8.2)
--- NOTE | 2017-04-28 08:36 | PDOC PROGRESS REPORT ---
Subjective Progress Note for:: 04/28/17 Subjective:: Patient states that his breathing is fine. Patient also states that he is feeling much better than when he came in. Patient was made aware that he would have his nuclear stress test done today. Patient was also made aware that he could potentially be discharged home if stress test is normal. Nursing reported the patient's blood pressure was on the low side therefore hydralazine was discontinued. Reason For Visit: HYPERTENSIVE EMERGENCY,DYSPNEA SECONDARY TO Physical Exam Vital Signs: Temp Pulse Resp BP Pulse Ox 98.6 F 81 18 136/69 H 92 04/28/17 03:42 04/28/17 03:42 04/28/17 03:42 04/28/17 03:42 04/28/17 03:42 Intake & Output 04/27/17 04/28/17 04/29/17 06:59 06:59 07:59 Intake Total 290 920 Output Total 125 Balance 165 920 Weight 76.7 kg 77.1 kg General appearance: PRESENT: no acute distress, well-developed, well-nourished Head exam: PRESENT: atraumatic, normocephalic Eye exam: PRESENT: conjunctiva pink, EOMI. ABSENT: scleral icterus Ear exam: PRESENT: normal external ear exam Mouth exam: PRESENT: moist, tongue midline Neck exam: ABSENT: carotid bruit, JVD, lymphadenopathy, thyromegaly Respiratory exam: PRESENT: clear to auscultation larissa. ABSENT: rales, rhonchi, wheezes Cardiovascular exam: PRESENT: RRR. ABSENT: diastolic murmur, rubs, systolic murmur Pulses: PRESENT: normal dorsalis pedis pul Vascular exam: PRESENT: normal capillary refill GI/Abdominal exam: PRESENT: normal bowel sounds, soft. ABSENT: distended, guarding, mass, organolmegaly, rebound, tenderness Rectal exam: PRESENT: deferred Extremities exam: PRESENT: full ROM. ABSENT: calf tenderness, clubbing, pedal edema Neurological exam: PRESENT: alert, awake, oriented to person, oriented to place , oriented to time, oriented to situation, CN II-XII grossly intact. ABSENT: motor sensory deficit Psychiatric exam: PRESENT: appropriate affect, normal mood. ABSENT: homicidal ideation, suicidal ideation Skin exam: PRESENT: dry, intact, warm. ABSENT: cyanosis, rash Results Laboratory Results: 04/27/17 06:21 04/28/17 06:03 04/28/17 06:03 Sodium 142.2 Potassium 4.0 Chloride 110 H Carbon Dioxide 21 L Anion Gap 11 BUN 34 H Creatinine 1.90 H Est GFR ( Amer) 41 L Est GFR (Non-Af Amer) 34 L Glucose 99 Calcium 9.1 Total Bilirubin 1.0 AST 24 ALT 40 Alkaline Phosphatase 57 Total Protein 5.4 L Albumin 3.5 04/26/17 15:25 Troponin I 0.094 Impressions: Renal Ultrasound 04/26/17 00:00 IMPRESSION: NORMAL RENAL AND BLADDER ULTRASOUND. Chest X-Ray 04/26/17 06:16 IMPRESSION: 1. Cardiomegaly with pulmonary vascular congestion and possible interstitial edema. Assessment & Plan - Diagnosis (1) Acute on chronic combined systolic and diastolic CHF (congestive heart failure) Is this a current diagnosis for this admission?: Yes Plan: EF of 35%. Patient on 2D echo was found to have systolic and diastolic congestive heart failure. Will discontinue patient's Lasix. Patient appears to be on the graphite pan drier tender side. Have also held patient's lisinopril due to patient being on the graphite pan drier tender side and slight increase in creatinine. Due to patient having chronic kidney disease expect creatinine to increase however due to patient being on Lasix unsure if increases due to patient being volume depleted. Therefore Lasix has been discontinued. If patient's stress test is negative patient still could go home today with follow-up as outpatient for renal function and cardiac management. (2) Hypertensive emergency Is this a current diagnosis for this admission?: Yes Plan: We will continue current medications. Hydralazine was discontinued this morning. Lisinopril was discontinued due to patient's creatinine worsening slightly which is most likely secondary to patient being dehydrated. (3) Dyspnea Is this a current diagnosis for this admission?: Yes Plan: Most likely secondary to pulmonary edema: Resolved. Patient's Lasix was discontinued. If patient is discharged home with Lasix will be as needed if patient has shortness of breath or lower extremity swelling. (4) Hypernatremia Is this a current diagnosis for this admission?: Yes Plan: Resolved. Most likely secondary to lab error. (5) CKD (chronic kidney disease) Qualifiers: Chronic kidney disease stage: stage 3 (moderate) Qualified Code(s): N18.3 - Chronic kidney disease, stage 3 (moderate) Is this a current diagnosis for this admission?: Yes Plan: Most likely chronic kidney disease secondary to hypertension: Patient with slight increase in creatinine which is most likely secondary to dehydration. Therefore lisinopril was discontinued and Lasix has been discontinued as well. (6) Pulmonary edema Qualifiers: Chronicity: acute Qualified Code(s): J81.0 - Acute pulmonary edema Is this a current diagnosis for this admission?: Yes Plan: Secondary to poorly controlled hypertension and acute on chronic systolic diastolic congestive heart failure with EF of 35%: Resolved. Diuretics were discontinued. If patient is discharged home will have Lasix only as needed. Patient does not require scheduled Lasix. Patient is euvolemic at this time. (7) Respiratory distress Is this a current diagnosis for this admission?: Yes Plan: Secondary to pulmonary edema related to poorly controlled hypertension: Resolved. (8) Cardiomegaly Is this a current diagnosis for this admission?: Yes Plan: Secondary to on chronic diastolic congestive heart failure with EF of 35%: Pt scheduled for Stress test. Lisinopril and Lasix discontinued. Pt currently euvolemic. (9) DVT prophylaxis Is this a current diagnosis for this admission?: Yes Plan: SCD
[2017-04-28] MEDS ORDERED: LISINOPRIL 10 MG TABLET PO SCH (10:00)
--- NOTE | 2017-04-28 10:16 | EKG REPORT ---
SEVERITY:- ABNORMAL ECG - SINUS RHYTHM MULTIPLE ATRIAL PREMATURE COMPLEXES LVH WITH SECONDARY REPOLARIZATION ABNORMALITY : Confirmed by: Nyasia Go 28-Apr-2017 10:15:13
[2017-04-28] MEDS: CARVEDILOL 6.25 MG TABLET PO SCH (11:22)
[2017-04-28] MEDS ORDERED: AMINOPHYLLINE INJ/PF 250 MG/10 ML SDV IV ONE (11:43)
[2017-04-28] MEDS ORDERED: REGADENOSON INJ 0.4 MG/5 ML DISP.SYRIN IV ONE (11:43)
--- NOTE | 2017-04-28 12:13 | PDOC PROGRESS REPORT ---
Subjective Progress Note for:: 04/28/17 Subjective:: Patient seems to be doing better with gradual improvement. Pt is denying any chest arm or neck discomfort. Patient denying any PND, orthopnea. Patient denied any sustained palpitations, dizziness, syncope, near syncope. Patient denying any fever chills. Patient denying any other significant discomfort. Patient had medication changes because of symptoms of dizziness and some low blood pressure. Patient also had worsening renal function noted on blood testing. Patient to undergo nuclear stress testing today. Patient is maintaining sinus rhythm. Patient complaining of dizziness this morning. Review of systems: Rest review of systems negative. Medications: Medications have been reviewed. Reason For Visit: HYPERTENSIVE EMERGENCY,DYSPNEA SECONDARY TO Physical Exam Vital Signs: Temp Pulse Resp BP Pulse Ox 97.9 F 77 16 123/56 L 98 04/28/17 07:50 04/28/17 07:50 04/28/17 07:50 04/28/17 07:50 04/28/17 08:00 Intake & Output 04/27/17 04/28/17 04/29/17 06:59 06:59 07:59 Intake Total 290 920 Output Total 125 Balance 165 920 Weight 76.7 kg 77.1 kg Exam: GENERAL: well-nourished and in no acute distress. Alert and oriented x3 HEAD: Atraumatic, normocephalic. EYES: Pupils equal round and reactive to light, extraocular movements intact, sclera anicteric, conjunctiva are normal. ENT: TMs normal, nares patent, oropharynx clear without exudates. Moist mucous membranes. No oral ulcerations or bleeding gums noted NECK: supple without lymphadenopathy. Trachea is central. No cervical or axillary lymphadenopathy noted. Carotids are 2+, JVD WNL LUNGS: Respiration seems nonlabored, no significant accessory muscle action noted. Breath sounds clear to auscultation bilaterally and equal noted. No wheezes rales or rhonchi noted. No significant dullness noted on percussion. CHEST: Palpation of the chest wall shows no significant chest wall tenderness. No other significant abnormalities noted. 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 ABDOMEN: Soft, no significant tenderness appreciated, normoactive bowel sounds. No guarding, no rebound. No rigidity noted . No masses appreciated. EXTREMITIES: Pedal pulses are 1-2+, no calf tenderness noted. No clubbing or cyanosis.trace pedal edema noted NEUROLOGICAL: Focused neurological exam showed no significant neurologic deficit. Normal speech, no focal weakness appreciated. PSYCH: Normal mood, normal affect. Judgment and insight within normal limits. SKIN: No significant ecchymosis, skin is noted to be warm. MUSCULOSKELETAL EXAM: No significant acute joint swelling noted. Results Laboratory Results: 04/27/17 06:21 04/28/17 06:03 04/28/17 06:03 Sodium 142.2 Potassium 4.0 Chloride 110 H Carbon Dioxide 21 L Anion Gap 11 BUN 34 H Creatinine 1.90 H Est GFR ( Amer) 41 L Est GFR (Non-Af Amer) 34 L Glucose 99 Calcium 9.1 Total Bilirubin 1.0 AST 24 ALT 40 Alkaline Phosphatase 57 Total Protein 5.4 L Albumin 3.5 04/26/17 15:25 Troponin I 0.094 EKG Comments: Telemetry strips shows sinus rhythm. No sustained tachycardia or bradycardia arrhythmias noted. Impressions: Renal Ultrasound 04/26/17 00:00 IMPRESSION: NORMAL RENAL AND BLADDER ULTRASOUND. Chest X-Ray 04/26/17 06:16 IMPRESSION: 1. Cardiomegaly with pulmonary vascular congestion and possible interstitial edema. Assessment & Plan - Diagnosis (1) Respiratory distress Is this a current diagnosis for this admission?: Yes (2) Hypertensive emergency Is this a current diagnosis for this admission?: Yes (3) Elevated troponin I level Is this a current diagnosis for this admission?: Yes (4) CKD (chronic kidney disease) Qualifiers: Chronic kidney disease stage: stage 3 (moderate) Qualified Code(s): N18.3 - Chronic kidney disease, stage 3 (moderate) Is this a current diagnosis for this admission?: Yes (5) Cardiomegaly Is this a current diagnosis for this admission?: Yes (6) Dyspnea Is this a current diagnosis for this admission?: Yes (7) Pulmonary edema Qualifiers: Chronicity: acute Qualified Code(s): J81.0 - Acute pulmonary edema Is this a current diagnosis for this admission?: Yes - Notes Notes: 2D echo results reviewed with the patient. It shows moderately depressed LVEF. Patient underwent nuclear stress test without any complications. Results are pending. Respiratory distress: Patient presents with acute respiratory distress most likely related to acute cardiogenic pulmonary edema. Possible causes include severe hypertension, cardiac ischemia, cardiac dysrhythmia including paroxysmal atrial fibrillation etc. are in the differential diagnosis. Continue with IV diuretics, Initial cardiac enzymes are indeterminate. 2D echo results reviewed with the patient. Hypertensive emergency: Blood pressure now under better control. Currently maintained carvedilol at 6.25 mg p.o. every 12 and we restart lisinopril at 10 mg p.o. daily. Elevated troponin I: Most likely related to severe hypertension and CHF. Nuclear stress test results are pending. Chronic kidney disease: Patient seems to have a stage III chronic kidney disease. Continue monitoring it. Dyspnea: Possibly combination of COPD, CHF, possibly ischemia equivalent symptom. Pulmonary edema: See discussion under acute respiratory failure. Addendum: 3 PM. Nuclear stress test results discussed with the patient and hospitalist. Feel that patient has cardiomyopathy. Medical management to be optimized. Have added lisinopril 5 mg p.o. daily. Patient to use Lasix on as needed basis. Patient would benefit from close cardiology follow-up. Patient advised to report any sustained palpitations, syncope, near syncope. - Time Time with patient: Greater than 35 minutes - Patient seen multiple times. Nuclear stress test pending at the time of dictation and addendum will be added. Patient will be encouraged to ambulate in the hallway. CODE STATUS was discussed, patient remains full code. Surrogate decision-maker patient's friend by the name of Kerri Peters. Multiple medical problems were addressed. More than 50% of the time spent coordinating care, discussing management plans with involved caregivers. Management plans discussed with involved personnels. Medical decision making was of moderate to high complexity, patient's has multiple comorbidities. Medications reviewed and adjusted accordingly: Yes
[2017-04-28] MEDS ORDERED: LISINOPRIL 5 MG TABLET PO ONE (13:00)
--- NOTE | 2017-04-28 13:25 | DRAGON STRESS TEST REPORT ---
INTRAVENOUS LEXISCAN CARDIOLITE STRESS TEST USING SINGLE PHOTON EMMISION COMPUTERIZED TOMOGRAPHIC. DATE OF PROCEDURE: April 28, 2017, INDICATION : Congestive heart failure, shortness of breath, cardiomyopathy CARDIAC RISK FACTORS: Hypertension, dyslipidemia, family history of CAD RESTING EKG: Sinus rhythm, LVH with secondary ST-T wave changes STRESS EKG: No significant changes noted with LexiScan bolus REASON FOR TERMINATION: Protocol. PROCEDURE REPORT: Baseline heart rate 81 beats per minute with blood pressure of 142/68. Patient had no significant complaints. Heart rate at 2 minutes post bolus 82 with a blood pressure of 124/50. 3 minutes post bolus heart rate 84 with blood pressure of 110/52. No significant EKG changes were noted. Patient had no significant complaints during the procedure or postprocedure. Patient injected with Aminophyllin 75 mg at 3 minutes or later after Lexiscan bolus. CONCLUSIONS: Normal EKG and hemodynamic response to IV LexiScan. NUCLEAR DATA: At rest the patient was given 11.01 millicuries of technetium 99 sestamibi injected intravenously. As per protocol rest gated SPECT images were obtained. On day of stress test, the patient was given intravenous LexiScan at a dose of 0.4 mg in 5 mL intravenously, followed by flush with normal saline. Subsequently the stress dose of 35.9 millicuries of technetium 99 sestamibi was injected intravenously. As per protocol stress gated images were obtained. NUCLEAR INTERPRETATION: Both raw and processed data were used for interpretation. Visual, qualitative, computer-generated quantitative data was used. There was patchy myocardial uptake of technetium compound. Motion artifact and soft tissue attenuations were noted. Increased visceral uptake was noted. No definitive areas of transient perfusion defect noted, No definitive areas of fixed perfusion defect or scars noted. EKG gated imaging showed LV EF at 38 %, rest and stress gated EF similar visually. T. I D. ratio was 0.97. Lung heart ratio noted to be within normal limits 0.40. No significant extracardiac and abnormal radiotracer activities were noted. RV free wall uptake was noted to be WNL. IMPRESSION: Also refer to comments under nuclear interpretation. Also test results needs to be interpreted in the context of pretest probability. 1. No definitive areas of transient perfusion defect noted. 2. There is no definitive scintigraphic evidence of myocardial infarction/scar. 3. EKG gated imaging shows left ventricular ejection fraction of approx. 38 %. 4. Clinical correlation requested as occasionally single vessel disease or balanced ischemia could be missed. In approximately 10% of the cases Lexiscan may not cause adequate vasodilatory stress. RECOMMENDATIONS: Aggressive risk factor modification and medical management. Further evaluation may be needed if continued symptoms or other high risk indicators are noted on clinical evaluation. Close cardiology follow-up is also recommended. Clinical correlation with echocardiogram derived ejection fraction. Inability to exercise by itself can lead to increased cardiovascular event risks. Consider cardiology consultation and or follow-up if clinically indicated. I am available for cardiology evaluation and consultation if requested by the identification technician, unless patient already has a motor patrol operator. DAVID
[2017-04-28] MEDS: ATORVASTATIN CALCIUM 20 MG TABLET PO SCH (22:16)
[2017-04-29] MEDS: CARVEDILOL 6.25 MG TABLET PO SCH ×2 (03:27→10:47)
[2017-04-29] MEDS: LANSOPRAZOLE 30 MG TAB.RAP.DR PO SCH (05:52)
[2017-04-29 06:16] LABS: ALANINE AMINOTRANSFERASE 33 U/L (21-72); ALBUMIN 3.1 g/dL (3.5-5.0); ALKALINE PHOSPHATASE 53 U/L (38-126); ANION GAP 11 (5-19); ASPARTATE AMINO TRANSFERASE 26 U/L (17-59); BILIRUBIN,DIRECT 0.2 mg/dL (0.0-0.4); BILIRUBIN,TOTAL 0.8 mg/dL (0.2-1.3); BLOOD UREA NITROGEN 38 mg/dL (7-20); CALCIUM 8.6 mg/dL (8.4-10.2); CARBON DIOXIDE 20 mmol/L (22-30); CHLORIDE 110 mmol/L (98-107); GLUCOSE 87 mg/dL (75-110); SODIUM 140.8 mmol/L (137-145)
--- NOTE | 2017-04-29 09:02 | PDOC DISCHARGE SUMMARY ---
General - Admit/Disc Date/PCP Admission Date/Primary Care Provider: 04/26/17 08:36 Discharge Date: 04/29/17 - Discharge Diagnosis (1) Acute on chronic combined systolic and diastolic CHF (congestive heart failure) Is this a current diagnosis for this admission?: Yes Summary: With EF of 35%: Patient was found to have acute on chronic diastolic and systolic congestive heart failure. Patient was given Lasix for diuresis and breathing improved. Patient was placed on carvedilol, statin, and DEMETRIO inhibitor. Patient's carvedilol dose was decreased due to bradycardia. Patient was placed on lisinopril and due to worsening renal function dose was held. Patient then later complained of difficulty swallowing. At time of discharge patient was not having any problems with breathing however lisinopril was not continued unsure if this is related to nasal congestion with postnasal drip or side effect of lisinopril. Appointments have been made for patient to follow-up with renal, cardiology, and GI as of outpatient. Patient was discharged home on as needed Lasix for weight gain of 3 pounds or more or shortness of breath. (2) Hypertensive emergency Is this a current diagnosis for this admission?: Yes Summary: Pt was noted to have extremely elevated blood pressure however once patient was placed on blood pressure medications patient's vital signs improved (3) Dyspnea Is this a current diagnosis for this admission?: Yes Summary: Secondary to congestive heart failure: Resolved (4) Hypernatremia Is this a current diagnosis for this admission?: Yes Summary: Resolved. (5) CKD (chronic kidney disease) Is this a current diagnosis for this admission?: Yes Summary: Will have pt follow up with Renal. (6) Pulmonary edema Is this a current diagnosis for this admission?: Yes Summary: In setting of Acute on Chronic Systolic and Diastolic CHF: Resolved. (7) Respiratory distress Is this a current diagnosis for this admission?: Yes Summary: Secondary to CHF exacerbation: Resolved. (8) Cardiomegaly Is this a current diagnosis for this admission?: Yes Summary: In setting of EF of 35%: Patient will continue current medication and follow with cardiology in regards to DEMETRIO inhibitor versus ARB inhibitor. (9) Difficulty swallowing Is this a current diagnosis for this admission?: Yes Summary: Pt will follow up with GI. Patient's DEMETRIO inhibitor was not continued due to worsening renal function and patient's complaint of difficulty swallowing. Unsure if patient's difficulty swallowing is related to DEMETRIO inhibitor or related to a chronic condition. Patient was placed on Dexilant at time of discharge. This will need to be further evaluated as outpatient. Patient reports that the last time he was evaluated by a physician was more than 10 years ago. - Additional Information Resuscitation Status: Full Code Discharge Diet: Cardiac Discharge Activity: No Lifting Over 10 Pounds, No Lifting/Push/Pulling Prescriptions: Atorvastatin Calcium [Lipitor 20 mg Tablet] 20 mg PO QHS #30 tablet Carvedilol 3.125 mg PO BID #60 tablet Dexlansoprazole [Dexilant] 30 mg PO QAM #30 cap.bp Furosemide [Lasix 20 mg Tablet] 20 mg PO QAMP PRN #30 tablet PRN Reason: Shortness Of Breath Home Medications: Atorvastatin Calcium [Lipitor 20 mg Tablet] 20 mg PO QHS #30 tablet 04/29/17 Carvedilol 3.125 mg PO BID #60 tablet 04/29/17 Dexlansoprazole [Dexilant] 30 mg PO QAM #30 cap.bp 04/29/17 Furosemide [Lasix 20 mg Tablet] 20 mg PO QAMP PRN #30 tablet 04/29/17 History of Present Illness Patient complains of: Shortness of breath History of Present Illness: LAURENT TREJO is a 81 year old male with emergency room with shortness of breath for the last few days. Patient states that he cannot state exactly when it started but he reports that he normally takes long walks at home in the evening. Patient noted over the last 5-10 days that he has had to stop to take deep breaths because he became short of breath. Patient states that last night it became very bad and he sat up in bed due to severity of shortness of breath. Patient states that he [place] and once he got there had difficulty breathing. Patient denied any chest pain did admit to abdominal discomfort patient states that he was transported to the hospital from work. Patient reports that he works 3 hours 3 times a week. Patient reports that he has not seen a PCP in over 10 years. Hospital Course Hospital Course: Patient is an 81-year-old gentleman who presented to our facility with complaint of shortness of breath. Patient was found to be in acute on chronic systolic diastolic congestive heart failure with EF of 35%. Patient had nuclear stress test that demonstrated no evidence of ischemia. Patient was also found to have hypertensive emergency. Patient was placed on carvedilol, lisinopril, hydralazine, and Lasix. Patient's blood pressure was under good control. Patient's carvedilol was reduced due to patient developing bradycardia. Patient's lisinopril was discontinued due to patient complaining of difficulty swallowing. Patient's difficulty swallowing will require further evaluation as outpatient due to the fact that patient has not seen a physician for more than 10 years. Patient was placed on Dexilant for possible GERD. Patient's DEMETRIO inhibitor will need to be addressed as outpatient. Patient was noted to have slight worsening of renal function while on DEMETRIO inhibitor and Lasix. Am aware that patients with chronic renal disease may have slight worsening of renal function that is acceptable however due to patient not having a primary care provider felt that this would be better addressed as outpatient. Referrals have been placed for renal, cardiology, and Dr. Paris as PCP. Patient was given prescription for Lasix as needed for weight gain of more than 3 pounds or worsening shortness of breath. Physical Exam Vital Signs: Temp Pulse Resp BP Pulse Ox 98.5 F 64 16 107/51 L 93 04/29/17 03:45 04/29/17 03:52 04/29/17 03:45 04/29/17 03:45 04/29/17 03:45 Intake & Output 04/28/17 04/29/17 04/30/17 05:59 06:59 06:59 Intake Total Output Total Balance Weight General appearance: PRESENT: no acute distress, well-developed, well-nourished Head exam: PRESENT: atraumatic, normocephalic Eye exam: PRESENT: conjunctiva pink, EOMI. ABSENT: scleral icterus Ear exam: PRESENT: normal external ear exam Mouth exam: PRESENT: moist, tongue midline Neck exam: ABSENT: carotid bruit, JVD, lymphadenopathy, thyromegaly Respiratory exam: PRESENT: clear to auscultation larissa. ABSENT: rales, rhonchi, wheezes Cardiovascular exam: PRESENT: RRR. ABSENT: diastolic murmur, rubs, systolic murmur Pulses: PRESENT: normal dorsalis pedis pul Vascular exam: PRESENT: normal capillary refill GI/Abdominal exam: PRESENT: normal bowel sounds, soft. ABSENT: distended, guarding, mass, organolmegaly, rebound, tenderness Rectal exam: PRESENT: deferred Extremities exam: PRESENT: full ROM. ABSENT: calf tenderness, clubbing, pedal edema Neurological exam: PRESENT: alert, awake, oriented to person, oriented to place , oriented to time, oriented to situation, CN II-XII grossly intact. ABSENT: motor sensory deficit Psychiatric exam: PRESENT: appropriate affect, normal mood. ABSENT: homicidal ideation, suicidal ideation Skin exam: PRESENT: dry, intact, warm. ABSENT: cyanosis, rash Results Laboratory Results: 04/27/17 06:21 04/29/17 04:33 04/29/17 04:33 Sodium 140.8 Potassium 4.0 Chloride 110 H Carbon Dioxide 20 L Anion Gap 11 BUN 38 H Creatinine 1.82 H Est GFR ( Amer) 44 L Est GFR (Non-Af Amer) 36 L Glucose 87 Calcium 8.6 Total Bilirubin 0.8 AST 26 ALT 33 Alkaline Phosphatase 53 Total Protein 5.0 L Albumin 3.1 L 04/26/17 15:25 Troponin I 0.094 Impressions: Renal Ultrasound 04/26/17 00:00 IMPRESSION: NORMAL RENAL AND BLADDER ULTRASOUND. Chest X-Ray 04/26/17 06:16 IMPRESSION: 1. Cardiomegaly with pulmonary vascular congestion and possible interstitial edema. Qualifiers - * PATEINT BEING DISCHARGED WITH ANY OF THE FOLLOWING DIAGNOSIS?: No VTE patient discharged on overlapping Therapy?: Yes Stroke Pt being discharged on Anti-thrombolytic therapy?: Yes Reason(s) for not prescribing Anti-thrombolytic therapy:: Tx not tolerated Stroke Pt being discharged on Anti-coagulation therapy?: Yes Reason(s) for not prescribing Anti-coagulation therapy:: Tx not tolerated Stroke Pt being discharged on Statins?: Yes Reason(s) for not prescribing Statins therapy:: Tx not tolerated MA Pt being discharged on Aspirin therapy?: Yes Reason(s) for not prescribing Aspirin therapy:: Tx not tolerated MA Pt being discharged on Statins?: Yes MA Pt discharged ACEI/ARBS?: Yes Reason(s) for not prescribing ACEI/ARBS:: Propensity to reaction - Patient complained of difficulty swallowing HF Pt being discharged on ACEI for LVEF less than 40%?: Yes Reason(s) for not prescribing ACEI:: Propensity to reaction - Patient complained of difficulty swallowing HF Pt being discharged on ARBS for LVEF less than 40%?: Yes Reason(s) for not prescribing ARBS:: Propensity to reaction - Worsening renal function and difficulty swallowing will be addressed by cardiology and renal as outpatient HF Pt with Afib discharged with Warfarin?: Yes HF Pt discharged on evidence-based Beta Sander:: Yes Plan Time Spent: Greater than 30 Minutes
[2017-04-29 09:27] VITALS: BP 121/90
[2017-04-29] MEDS ORDERED: LISINOPRIL 5 MG TABLET PO SCH (10:00)
--- NOTE | 2017-04-29 17:33 | PDOC PROGRESS REPORT ---
Subjective Progress Note for:: 04/29/17 Subjective:: Patient was seen prior to discharge. He has ambulated in the hallway without any discomfort. Pt is denying any chest arm or neck discomfort. Patient denying any PND, orthopnea. Patient denied any sustained palpitations, dizziness, syncope, near syncope. Patient denying any fever chills. Patient denying any other significant discomfort. Chemistry panel obtained this morning shows stable renal functions. Patient is maintaining sinus rhythm. Patient complaining of dizziness this morning. Review of systems: Rest review of systems negative. Medications: Medications have been reviewed. Reason For Visit: HYPERTENSIVE EMERGENCY,DYSPNEA SECONDARY TO Physical Exam Vital Signs: Temp Pulse Resp BP Pulse Ox 97.9 F 73 16 121/90 H 93 04/29/17 10:16 04/29/17 10:16 04/29/17 10:16 04/29/17 10:16 04/29/17 10:16 Intake & Output 04/28/17 04/29/17 04/30/17 05:59 06:59 06:59 Intake Total Output Total Balance Weight Exam: GENERAL: well-nourished and in no acute distress. Alert and oriented x3 HEAD: Atraumatic, normocephalic. EYES: Pupils equal round and reactive to light, extraocular movements intact, sclera anicteric, conjunctiva are normal. ENT: TMs normal, nares patent, oropharynx clear without exudates. Moist mucous membranes. No oral ulcerations or bleeding gums noted NECK: supple without lymphadenopathy. Trachea is central. No cervical or axillary lymphadenopathy noted. Carotids are 2+, JVD WNL LUNGS: Respiration seems nonlabored, no significant accessory muscle action noted. Breath sounds clear to auscultation bilaterally and equal noted. No wheezes rales or rhonchi noted. No significant dullness noted on percussion. CHEST: Palpation of the chest wall shows no significant chest wall tenderness. No other significant abnormalities noted. HEART: [place] COUNTER HOP, No PSH, 1/6 NELIDA aortic area, 1/6 jeffries systolic murmur mitral area, no rubs, no gallops. ABDOMEN: Soft, no significant tenderness appreciated, normoactive bowel sounds. No guarding, no rebound. No rigidity noted . No masses appreciated. EXTREMITIES: Pedal pulses are 1-2+, no calf tenderness noted. No clubbing or cyanosis.trace pedal edema noted NEUROLOGICAL: Focused neurological exam showed no significant neurologic deficit. Normal speech, no focal weakness appreciated. PSYCH: Normal mood, normal affect. Judgment and insight within normal limits. SKIN: No significant ecchymosis, skin is noted to be warm. MUSCULOSKELETAL EXAM: No significant acute joint swelling noted. Results Laboratory Results: 04/27/17 06:21 04/29/17 04:33 04/29/17 04:33 Sodium 140.8 Potassium 4.0 Chloride 110 H Carbon Dioxide 20 L Anion Gap 11 BUN 38 H Creatinine 1.82 H Est GFR ( Amer) 44 L Est GFR (Non-Af Amer) 36 L Glucose 87 Calcium 8.6 Total Bilirubin 0.8 AST 26 ALT 33 Alkaline Phosphatase 53 Total Protein 5.0 L Albumin 3.1 L 04/26/17 15:25 Troponin I 0.094 Impressions: Renal Ultrasound 04/26/17 00:00 IMPRESSION: NORMAL RENAL AND BLADDER ULTRASOUND. Chest X-Ray 04/26/17 06:16 IMPRESSION: 1. Cardiomegaly with pulmonary vascular congestion and possible interstitial edema. Assessment & Plan - Diagnosis (1) Respiratory distress Is this a current diagnosis for this admission?: Yes (2) Hypertensive emergency Is this a current diagnosis for this admission?: Yes (3) Elevated troponin I level Is this a current diagnosis for this admission?: Yes (4) CKD (chronic kidney disease) Qualifiers: Chronic kidney disease stage: stage 3 (moderate) Qualified Code(s): N18.3 - Chronic kidney disease, stage 3 (moderate) Is this a current diagnosis for this admission?: Yes (5) Cardiomegaly Is this a current diagnosis for this admission?: Yes (6) Dyspnea Is this a current diagnosis for this admission?: Yes (7) Pulmonary edema Qualifiers: Chronicity: acute Qualified Code(s): J81.0 - Acute pulmonary edema Is this a current diagnosis for this admission?: Yes - Notes Notes: Respiratory distress: Resolved. This was most likely related to CHF and pulmonary edema. 2D echo results reviewed with the patient. Nuclear stress test results reviewed. Hypertensive emergency: Blood pressure now under better control. Continue current medications for hypertension on discharge. Further adjustment can be done as an outpatient. Elevated troponin I: Most likely related to severe hypertension and CHF. Nuclear stress test results were reviewed. Showed no significant ischemia. Patient has cardiomyopathy type picture. Chronic kidney disease: Patient seems to have a stage III chronic kidney disease. We will repeat a chemistry panel as an outpatient in a week. Dyspnea: Possibly combination of COPD, CHF, possibly ischemia equivalent symptom. Pulmonary edema: See discussion under acute respiratory failure. - Time Time with patient: 15-25 minutes Medications reviewed and adjusted accordingly: Yes
== END 2017-04-29 10:54 | disposition home or self-care (01) | DRG 304 ==
LOC: ER 06:11 → EH 08:36 → 3N 10:40
PROVIDERS: ADMIT Emergency Medicine; ATTEND Emergency Medicine
DX: I16.0 Hypertensive urgency (principal); I50.43 Acute on chronic combined systolic (congestive) and diastolic (congestive) heart failure; J81.0 Acute pulmonary edema; E87.0 Hyperosmolality and hypernatremia; I13.0 Hypertensive heart and chronic kidney disease with heart failure and stage 1 through stage 4 chronic kidney disease, or unspecified chronic kidney disease; N18.3 Chronic kidney disease, stage 3 (moderate); Z60.2 Problems related to living alone; Z87.891 Personal history of nicotine dependence
CPT/HCPCS: 36415; 71045; 76770; 78452; 80053; 80061; 82550; 82553; 82803; 83036; 83605; 83690; 83735; 83880; 84439; 84443; 84484; 85025; 85610; 93005; 93010; 93017; 93306; 94660; 96365; 99291; A9500; G8978-GP; G8979-GP; G8987-GO; G8988-GO; J0280; J0360; J2785; J3475; Q9969

== ENCOUNTER → 2017-05-31 | Outpatient (CLI) | payer MEDICARE ==
[2017-05-31 08:20] LABS: ABSOLUTE EOSINOPHILS # (AUTO) 0.3 10^3/uL (0.0-0.6); ABSOLUTE LYMPHOCYTES (AUTO) 1.1 10^3/uL (0.5-4.7); ABSOLUTE MONOCYTES (AUTO) 0.6 10^3/uL (0.1-1.4); ABSOLUTE NEUT (AUTO) 3.1 10^3/uL (1.7-8.2); BASOPHILS % (AUTO) 0.9 % (0-2); HEMATOCRIT 40.2 % (37.9-51.0); HEMOGLOBIN 13.8 g/dL (13.5-17.0); LYMPHOCYTES % (AUTO) 21.9 % (13-45); MEAN CORPUSCULAR HEMOGLOBIN 31.7 pg (27.0-33.4); MEAN CORPUSCULAR HGB CONC 34.3 g/dL (32.0-36.0); MEAN CORPUSCULAR VOLUME 93 fl (80-97); MONOCYTES % (AUTO) 10.9 % (3-13); PLATELET COUNT 173 10^3/uL (150-450); RED BLOOD COUNT 4.34 10^6/uL (4.35-5.55); RED CELL DISTRIBUTION WIDTH 13.7 % (11.5-14.0); SEGMENTED NEUTROPHILS % (AUTO) 61.3 % (42-78); TOTAL CELLS COUNTED % (AUTO) 100 %; WHITE BLOOD COUNT 5.1 10^3/uL (4.0-10.5)
[2017-05-31 08:47] LABS: ALBUMIN 3.8 g/dL (3.5-5.0); ANION GAP 10 (5-19); BLOOD UREA NITROGEN 27 mg/dL (7-20); CALCIUM 9.3 mg/dL (8.4-10.2); CARBON DIOXIDE 27 mmol/L (22-30); CHLORIDE 110 mmol/L (98-107); GLUCOSE 104 mg/dL (75-110); PHOSPHORUS 3.3 mg/dL (2.5-4.5); POTASSIUM 4.7 mmol/L (3.6-5.0); SODIUM 146.5 mmol/L (137-145)
[2017-06-01 11:40] LABS: CREATININE URINE 92.6 mg/dL (Not Estab.); MICROALBUMIN URINE 22.2 ug/mL (Not Estab.)
== END ==
LOC: OD 07:35
PROVIDERS: ATTEND Internal Medicine Nephrology
DX: I12.9 Hypertensive chronic kidney disease with stage 1 through stage 4 chronic kidney disease, or unspecified chronic kidney disease (principal); N18.3 Chronic kidney disease, stage 3 (moderate); I50.42 Chronic combined systolic (congestive) and diastolic (congestive) heart failure
CPT/HCPCS: 36415; 80048; 82040; 82043; 82306; 82570; 83970; 84100; 85025

== ENCOUNTER 2017-06-01 07:45 | Day surgery (SDC) | payer MEDICARE ==
[~2017-06-01 07:45] MED LIST: DIPHENHYDRAMINE HCL 50 MG/ML VIAL ONE; EPINEPHRINE INJ 1 MG/10 ML DISP.SYRIN ONE; FENTANYL CITRATE INJ/PF 100 MCG/2 ML AMPUL ONE; FLUMAZENIL INJ 0.5 MG/5 ML VIAL ONE; GLUCAGON,HUMAN RECOMB 1 MG INJ ONE; NALOXONE HCL INJ/PF 0.4 MG/1 ML SDV ONE; ONDANSETRON HCL INJ/PF 4 MG/2 ML SDV ONE
[2017-06-01] MEDS: MIDAZOLAM 2 MG/2 ML INJ ONE ×2 (08:11→08:18)
--- NOTE | 2017-06-01 08:48 | Operative Report ---
Operative Report DATE OF SURGERY: 06/01/17 Operative Report: The risks benefits and alternatives of the procedure explained to the patient in detail and informed consent is obtained.A GIF Olympus video scope was inserted into the patient's mouth and hypopharynx, the esophagus is identified intubated and insufflated ,the scope was then advanced through the esophagus stomach and duodenum ,retroflexion maneuver is done ,the esophagus stomach and first and second portions of the duodenum examined PREOPERATIVE DIAGNOSIS: Dysphagia POSTOPERATIVE DIAGNOSIS: Small area of irritation, esophagitis versus Kidd' s. Hiatal hernia. Gastritis status post biopsy rule out Helicobacter pylori. Pedunculated polyp noted in the stomach that was removed via snare polypectomy. OPERATION: EGD with snare polypectomy. EGD with biopsy SURGEON: DARIUS IVERSON ANESTHESIA: Moderate Sedation - 3 mg of Versed TISSUE REMOVED OR ALTERED: As noted above. COMPLICATIONS: None. ESTIMATED BLOOD LOSS: None. INTRAOPERATIVE FINDINGS: As noted above. PROCEDURE: Patient tolerated procedure well. No immediate postprocedure complications are noted. Patient discharged in good condition. Discharge date June 01, 2017. Discharge diet: Regular. Discharge activity: Regular. 2-3 week follow-up to discuss findings. Patient is instructed call the office or proceed to the emergency room should there be any further problems or questions. We will await pathology.
[2017-06-01 10:08] VITALS: BP 157/63
== END 2017-06-01 09:35 | disposition home or self-care (01) ==
LOC: END 07:45
PROVIDERS: ATTEND Internal Medicine Gastroenterology
PROC: 0DB68ZX Excision of Stomach, Via Natural or Artificial Opening Endoscopic, Diagnostic (ICD-10-PCS; principal; 2017-06-01 08:00)
DX: K44.9 Diaphragmatic hernia without obstruction or gangrene (principal); K31.7 Polyp of stomach and duodenum; R13.10 Dysphagia, unspecified; Z79.899 Other long term (current) drug therapy; Z88.8 Allergy status to other drugs, medicaments and biological substances
CPT/HCPCS: 43251; 88305 ×2; J2250; 43239; J0171; J1200; J1610; J2310; J2405; J3010; J3490

== ENCOUNTER → 2017-10-19 | Outpatient (CLI) | payer MEDICARE ==
[2017-10-19 08:29] LABS: ABSOLUTE EOSINOPHILS # (AUTO) 0.3 10^3/uL (0.0-0.6); ABSOLUTE LYMPHOCYTES (AUTO) 1.3 10^3/uL (0.5-4.7); ABSOLUTE MONOCYTES (AUTO) 0.5 10^3/uL (0.1-1.4); BASOPHILS % (AUTO) 0.8 % (0-2); EOSINOPHILS % (AUTO) 5.4 % (0-6); HEMATOCRIT 37.3 % (37.9-51.0); HEMOGLOBIN 12.7 g/dL (13.5-17.0); LYMPHOCYTES % (AUTO) 24.6 % (13-45); MEAN CORPUSCULAR HEMOGLOBIN 32.3 pg (27.0-33.4); MEAN CORPUSCULAR HGB CONC 34.1 g/dL (32.0-36.0); MEAN CORPUSCULAR VOLUME 95 fl (80-97); MONOCYTES % (AUTO) 10.3 % (3-13); PLATELET COUNT 191 10^3/uL (150-450); RED BLOOD COUNT 3.93 10^6/uL (4.35-5.55); RED CELL DISTRIBUTION WIDTH 14.6 % (11.5-14.0); SEGMENTED NEUTROPHILS % (AUTO) 58.9 % (42-78); TOTAL CELLS COUNTED % (AUTO) 100 %; WHITE BLOOD COUNT 5.1 10^3/uL (4.0-10.5)
[2017-10-19 08:33] LABS: APPEARANCE,URINE CLEAR; BILIRUBIN,URINE NEGATIVE (NEGATIVE); COLOR,URINE YELLOW; GLUCOSE, URINE NEGATIVE (NEGATIVE); KETONES,URINE NEGATIVE (NEGATIVE); LEUKOCYTE ESTERASE,URINE NEGATIVE (NEGATIVE); NITRITE,URINE NEGATIVE (NEGATIVE); PROTEIN,URINE NEGATIVE (NEGATIVE); URINE SPECIFIC GRAVITY 1.017; UROBILINOGEN,URINE NEGATIVE mg/dL (<2.0)
[2017-10-19 09:20] LABS: ANION GAP 13 (5-19); BLOOD UREA NITROGEN 28 mg/dL (7-20); CALCIUM 9.3 mg/dL (8.4-10.2); CARBON DIOXIDE 22 mmol/L (22-30); CHLORIDE 112 mmol/L (98-107); GLUCOSE 96 mg/dL (75-110); PHOSPHORUS 4.1 mg/dL (2.5-4.5); POTASSIUM 5.8 mmol/L (3.6-5.0); SODIUM 147.4 mmol/L (137-145)
[2017-10-20 11:38] LABS: CREATININE URINE 133.5 mg/dL (Not Estab.)
== END ==
LOC: OD 07:48
PROVIDERS: ATTEND Internal Medicine Nephrology
DX: I12.9 Hypertensive chronic kidney disease with stage 1 through stage 4 chronic kidney disease, or unspecified chronic kidney disease (principal); N18.3 Chronic kidney disease, stage 3 (moderate)
CPT/HCPCS: 36415; 80048; 81001; 82040; 82043; 82306; 82570; 83970; 84100; 85025

== ENCOUNTER → 2017-10-23 | Outpatient (CLI) | payer MEDICARE | LOC: OD 09:03 | PROVIDERS: ATTEND Internal Medicine Nephrology | DX: E87.5 Hyperkalemia (principal) | CPT/HCPCS: 36415; 84132 ==

== ENCOUNTER → 2018-01-24 | Outpatient (CLI) | payer MEDICARE ==
[2018-01-24 08:31] LABS: ABSOLUTE BASOPHILS # (AUTO) 0.1 10^3/uL (0.0-0.2); ABSOLUTE EOSINOPHILS # (AUTO) 0.5 10^3/uL (0.0-0.6); ABSOLUTE LYMPHOCYTES (AUTO) 1.5 10^3/uL (0.5-4.7); ABSOLUTE MONOCYTES (AUTO) 0.7 10^3/uL (0.1-1.4); ABSOLUTE NEUT (AUTO) 3.6 10^3/uL (1.7-8.2); BASOPHILS % (AUTO) 1.1 % (0-2); EOSINOPHILS % (AUTO) 7.7 % (0-6); HEMATOCRIT 37.2 % (37.9-51.0); HEMOGLOBIN 12.7 g/dL (13.5-17.0); LYMPHOCYTES % (AUTO) 22.9 % (13-45); MEAN CORPUSCULAR HEMOGLOBIN 32.3 pg (27.0-33.4); MEAN CORPUSCULAR VOLUME 95 fl (80-97); MONOCYTES % (AUTO) 11.2 % (3-13); PLATELET COUNT 239 10^3/uL (150-450); RED BLOOD COUNT 3.92 10^6/uL (4.35-5.55); SEGMENTED NEUTROPHILS % (AUTO) 57.1 % (42-78); TOTAL CELLS COUNTED % (AUTO) 100 %; WHITE BLOOD COUNT 6.3 10^3/uL (4.0-10.5)
[2018-01-24 08:50] LABS: ANION GAP 9 (5-19); BLOOD UREA NITROGEN 33 mg/dL (7-20); CALCIUM 9.1 mg/dL (8.4-10.2); CARBON DIOXIDE 27 mmol/L (22-30); CHLORIDE 111 mmol/L (98-107); GLUCOSE 97 mg/dL (75-110); POTASSIUM 5.2 mmol/L (3.6-5.0)
== END ==
LOC: OD 07:32
PROVIDERS: ATTEND Internal Medicine Nephrology
DX: N18.3 Chronic kidney disease, stage 3 (moderate) (principal); D63.1 Anemia in chronic kidney disease; E87.5 Hyperkalemia
CPT/HCPCS: 36415; 80048; 85025

== ENCOUNTER → 2018-05-02 | Outpatient (CLI) | payer MEDICARE ==
[2018-05-02 08:00] LABS: ABSOLUTE BASOPHILS # (AUTO) 0.1 10^3/uL (0.0-0.2); ABSOLUTE EOSINOPHILS # (AUTO) 0.3 10^3/uL (0.0-0.6); ABSOLUTE LYMPHOCYTES (AUTO) 1.4 10^3/uL (0.5-4.7); ABSOLUTE MONOCYTES (AUTO) 0.6 10^3/uL (0.1-1.4); ABSOLUTE NEUT (AUTO) 3.1 10^3/uL (1.7-8.2); EOSINOPHILS % (AUTO) 5.3 % (0-6); HEMATOCRIT 37.1 % (37.9-51.0); HEMOGLOBIN 12.8 g/dL (13.5-17.0); LYMPHOCYTES % (AUTO) 25.6 % (13-45); MEAN CORPUSCULAR HEMOGLOBIN 32.8 pg (27.0-33.4); MEAN CORPUSCULAR HGB CONC 34.5 g/dL (32.0-36.0); MEAN CORPUSCULAR VOLUME 95 fl (80-97); MONOCYTES % (AUTO) 11.5 % (3-13); PLATELET COUNT 209 10^3/uL (150-450); RED BLOOD COUNT 3.91 10^6/uL (4.35-5.55); RED CELL DISTRIBUTION WIDTH 13.8 % (11.5-14.0); SEGMENTED NEUTROPHILS % (AUTO) 56.6 % (42-78); TOTAL CELLS COUNTED % (AUTO) 100 %; WHITE BLOOD COUNT 5.5 10^3/uL (4.0-10.5)
[2018-05-02 08:01] LABS: APPEARANCE,URINE CLEAR; BILIRUBIN,URINE NEGATIVE (NEGATIVE); COLOR,URINE YELLOW; GLUCOSE, URINE NEGATIVE (NEGATIVE); KETONES,URINE NEGATIVE (NEGATIVE); LEUKOCYTE ESTERASE,URINE NEGATIVE (NEGATIVE); NITRITE,URINE NEGATIVE (NEGATIVE); PROTEIN,URINE NEGATIVE (NEGATIVE); URINE SPECIFIC GRAVITY 1.018; UROBILINOGEN,URINE NEGATIVE mg/dL (<2.0)
[2018-05-02 08:18] LABS: ALBUMIN 4.4 g/dL (3.5-5.0); ANION GAP 11 (5-19); BLOOD UREA NITROGEN 37 mg/dL (7-20); CALCIUM 9.4 mg/dL (8.4-10.2); CARBON DIOXIDE 25 mmol/L (22-30); CHLORIDE 108 mmol/L (98-107); GLUCOSE 96 mg/dL (75-110); PHOSPHORUS 3.7 mg/dL (2.5-4.5); POTASSIUM 4.8 mmol/L (3.6-5.0); SODIUM 143.8 mmol/L (137-145)
[2018-05-03 12:39] LABS: MICROALBUMIN URINE 25.6 ug/mL (Not Estab.)
== END ==
LOC: OD 07:22
PROVIDERS: ATTEND Internal Medicine Nephrology
DX: I12.9 Hypertensive chronic kidney disease with stage 1 through stage 4 chronic kidney disease, or unspecified chronic kidney disease (principal); N18.3 Chronic kidney disease, stage 3 (moderate); D64.9 Anemia, unspecified
CPT/HCPCS: 36415; 80048; 81001; 82040; 82043; 82306; 82570; 83970; 84100; 85025

== ENCOUNTER → 2018-08-09 | Outpatient (CLI) | payer MEDICARE ==
[2018-08-09 07:46] LABS: ABSOLUTE EOSINOPHILS # (AUTO) 0.4 10^3/uL (0.0-0.6); ABSOLUTE LYMPHOCYTES (AUTO) 1.7 10^3/uL (0.5-4.7); ABSOLUTE MONOCYTES (AUTO) 0.6 10^3/uL (0.1-1.4); ABSOLUTE NEUT (AUTO) 2.9 10^3/uL (1.7-8.2); BASOPHILS % (AUTO) 0.8 % (0-2); EOSINOPHILS % (AUTO) 6.4 % (0-6); HEMATOCRIT 37.4 % (37.9-51.0); HEMOGLOBIN 12.5 g/dL (13.5-17.0); MEAN CORPUSCULAR HEMOGLOBIN 31.8 pg (27.0-33.4); MEAN CORPUSCULAR HGB CONC 33.3 g/dL (32.0-36.0); MEAN CORPUSCULAR VOLUME 95 fl (80-97); MONOCYTES % (AUTO) 10.6 % (3-13); PLATELET COUNT 194 10^3/uL (150-450); RED BLOOD COUNT 3.92 10^6/uL (4.35-5.55); RED CELL DISTRIBUTION WIDTH 14.5 % (11.5-14.0); SEGMENTED NEUTROPHILS % (AUTO) 52.2 % (42-78); TOTAL CELLS COUNTED % (AUTO) 100 %; WHITE BLOOD COUNT 5.6 10^3/uL (4.0-10.5)
[2018-08-09 08:03] LABS: ANION GAP 9 (5-19); BLOOD UREA NITROGEN 26 mg/dL (7-20); CARBON DIOXIDE 23 mmol/L (22-30); CHLORIDE 112 mmol/L (98-107); GLUCOSE 90 mg/dL (75-110); POTASSIUM 4.7 mmol/L (3.6-5.0); SODIUM 143.8 mmol/L (137-145)
== END ==
LOC: OD 07:25
PROVIDERS: ATTEND Internal Medicine Nephrology
DX: I12.9 Hypertensive chronic kidney disease with stage 1 through stage 4 chronic kidney disease, or unspecified chronic kidney disease (principal); N18.4 Chronic kidney disease, stage 4 (severe); D63.1 Anemia in chronic kidney disease
CPT/HCPCS: 36415; 80048; 83970; 85025

== ENCOUNTER 2018-09-02 08:59 | Emergency (ER) | payer MEDICARE ==
[2018-09-02] MEDS ORDERED: ACETAMINOPHEN 325 MG TABLET PO ONE (10:33)
--- NOTE | 2018-09-02 10:40 | ER Document Report ---
HPI - HPI Patient complains to provider of: left ankle pain Time Seen by Provider: 09/02/18 10:33 Pain Level: 3 Context: Patient is a very active 83-year-old male presents to the emergency department for left ankle pain. Patient states yesterday he was coming down off of a ladder after doing work on the roof. States he missed the last rung and inevitably twisted his left ankle. States he was feeling okay until this morning when he tried to step off the curve and again twisted his left ankle. Patient states he took Tylenol around 3 AM for generalized pain. Patient's denying any falling, hitting his head, neck, back. Denies any pain in all 3. Denies any loss of consciousness or vomiting. Patient's denying any use of blood thinners. Patient states he is up-to-date on immunizations Past medical history: Hypertension, hyperlipidemia, GERD Medications: Amlodipine, atorvastatin, carvedilol, Lasix, losartan, Prilosec Allergies: None Past Medical History - General Information source: Patient - Social History Smoking Status: Unknown if Ever Smoked Family History: CAD - Past Medical History Cardiac Medical History: Reports: Hx Hypertension - ON MEDS Denies: Hx Coronary Artery Disease, Hx Heart Attack Pulmonary Medical History: Reports: Hx Pneumonia - YRS AGO Denies: Hx Asthma, Hx Bronchitis, Hx COPD Neurological Medical History: Denies: Hx Cerebrovascular Accident, Hx Seizures Renal/ Medical History: Denies: Hx Peritoneal Dialysis Musculoskeletal Medical History: Reports Hx Arthritis Past Surgical History: Reports: Hx Appendectomy - Immunizations Hx Diphtheria, Pertussis, Tetanus Vaccination: No Vertical Provider Document - CONSTITUTIONAL Agree With Documented VS: Yes Notes: GENERAL: Alert, interacts well. No acute distress. HEAD: Normocephalic, atraumatic. EYES: Pupils equal, round, and reactive to light. Extraocular movements intact. ENT: Oral mucosa moist, tongue midline. Nares patent, no nasal septal hematoma, TM's intact, no hemotympanum noted bilaterally. NECK: Full range of motion. Supple. Trachea midline. LUNGS: Clear to auscultation bilaterally, no wheezes, rales, or rhonchi. No respiratory distress. HEART: Regular rate and rhythm. No murmur ABDOMEN: Soft, non-tender. Non-distended. Bowel sounds present in all 4 quadrants. EXTREMITIES: Moves all 4 extremities spontaneously. normal radial and dorsalis pedis pulses bilaterally. Generalized swelling and slight ecchymosis noted left lateral malleolus. Ecchymosis noted dorsal aspect of left foot more so near great toe. BACK: no cervical, thoracic, lumbar midline tenderness. No saddle anesthesia, normal distal neurovascular exam. NEUROLOGICAL: Alert and oriented x3. Normal speech. cranial nerves II through XII grossly intact. PSYCH: Normal affect, normal mood. SKIN: Warm, dry, normal turgor. - INFECTION CONTROL TRAVEL OUTSIDE OF THE [place] IN LAST 30 DAYS: No Course - Re-evaluation Re-evalutation: 09/02/18 13:41 Ankle X-Ray 09/02/18 10:33 IMPRESSION: Nondisplaced fracture lateral malleolus. Foot X-Ray 09/02/18 10:33 IMPRESSION: NO FRACTURE. Splint placed, patient tolerated well. Patient is refusing any narcotic pain management. States she will take Tylenol at home. Discussed close follow-up with orthopedics. At this time will discharge with return precautions and follow-up recommendations. Verbal discharge instructions given a the bedside and opportunity for questions given. Medication warnings reviewed. Patient is in a greement with this plan and has verbalized understanding of return precautions and the need for primary care follow-up in the next 24-72 hours. This medical record was dictated with voice recognizing software. There may be grammatical, syntax errors that are unintended. - Vital Signs Vital signs: Temp Pulse Resp BP Pulse Ox 97.9 F 63 16 130/64 H 95 09/02/18 09:15 09/02/18 09:15 09/02/18 09:15 09/02/18 09:15 09/02/18 09:15 Procedures - Immobilization ankle Pre-Proc Neuro Vasc Exam: Normal Immobilizer type: Short Leg Posterior Performed by: Provider assisted Post-Proc Neuro Vasc Exam: Normal Alignment checked and good: Yes Discharge - Discharge Clinical Impression: Fractured lateral malleolus Qualifiers: Encounter type: initial encounter Fracture type: closed Fracture alignment: nondisplaced Laterality: left Qualified Code(s): S82.65XA - Nondisplaced fracture of lateral malleolus of left fibula, initial encounter for closed fracture Condition: Stable Disposition: HOME, SELF-CARE Instructions: Ice & Elevation (OM), Use of Crutches (OM), Fractured Ankle (Bimalleolar) ([facility]) Additional Instructions: As we discussed you have been seen and treated in the emergency department for a fracture to your ankle. Please make sure that you keep splints in place until you follow-up with orthopedics. Please also make sure you do not put any pressure on your left lower extremity. Please make sure you take [id number] analgesics for generalized pain. Please return to the emergency room for any concerns. Phone numbers for orthopedics will be provided in this packet. Forms: Return to Work Referrals: BK ESCALANTE DO [ACTIVE STAFF] - Follow up as needed
--- NOTE | 2018-09-02 11:53 | RADIOLOGY REPORT (SQ) ---
EXAM DESCRIPTION: ANKLE LEFT COMPLETE COMPLETED DATE/TIME: 09/02/2018 11:41 am REASON FOR STUDY: fall COMPARISON: None. NUMBER OF VIEWS: Three views. TECHNIQUE: AP, lateral, and oblique radiographic images acquired of the left ankle. LIMITATIONS: None. FINDINGS: MINERALIZATION: Normal. BONES: There is a crack in the lateral cortex of the distal fibula. No displaced fracture. JOINTS: No effusions. SOFT TISSUES: Lateral swelling. No foreign body. OTHER: No other significant finding. IMPRESSION: Nondisplaced fracture lateral malleolus. TECHNICAL DOCUMENTATION: JOB ID: [id number] [employer]- All Rights Reserved Reading location - IP/workstation name: [email or web address]
--- NOTE | 2018-09-02 13:39 | RADIOLOGY REPORT (SQ) ---
EXAM DESCRIPTION: FOOT LEFT 2 VIEWS COMPLETED DATE/TIME: 09/02/2018 11:41 am REASON FOR STUDY: fall COMPARISON: None. EXAM PARAMETERS: NUMBER OF VIEWS: Three views. TECHNIQUE: AP, lateral and oblique radiographic images acquired of the left foot. LIMITATIONS: None. FINDINGS: MINERALIZATION: Normal. BONES: No acute fracture or dislocation. No worrisome bone lesions. JOINTS: No effusion. SOFT TISSUES: No significant soft tissue swelling. No radiopaque foreign body. OTHER: No other significant finding. IMPRESSION: NO FRACTURE. TECHNICAL DOCUMENTATION: JOB ID: [id number] [employer]- All Rights Reserved Reading location - IP/workstation name: [email or web address]
[2018-09-02 14:12] VITALS: BP 134/63
== END 2018-09-02 14:13 | disposition home or self-care (01) ==
LOC: ER 08:59
PROC: 2W3RX1Z Immobilization of Left Lower Leg using Splint (ICD-10-PCS; principal; 2018-09-02)
DX: S82.65XA Nondisplaced fracture of lateral malleolus of left fibula, initial encounter for closed fracture (principal); M25.572 Pain in left ankle and joints of left foot; X50.1XXA Overexertion from prolonged static or awkward postures, initial encounter; Z79.899 Other long term (current) drug therapy
CPT/HCPCS: 99283; 73610; 73620; 29515; A9270

== ENCOUNTER → 2018-12-13 | Outpatient (CLI) | payer MEDICARE ==
[2018-12-13 07:47] LABS: ABSOLUTE BASOPHILS # (AUTO) 0.1 10^3/uL (0.0-0.2); ABSOLUTE EOSINOPHILS # (AUTO) 0.3 10^3/uL (0.0-0.6); ABSOLUTE LYMPHOCYTES (AUTO) 1.7 10^3/uL (0.5-4.7); ABSOLUTE MONOCYTES (AUTO) 0.7 10^3/uL (0.1-1.4); ABSOLUTE NEUT (AUTO) 3.6 10^3/uL (1.7-8.2); BASOPHILS % (AUTO) 0.8 % (0-2); HEMATOCRIT 37.3 % (37.9-51.0); HEMOGLOBIN 12.4 g/dL (13.5-17.0); LYMPHOCYTES % (AUTO) 26.9 % (13-45); MEAN CORPUSCULAR HEMOGLOBIN 32.9 pg (27.0-33.4); MEAN CORPUSCULAR HGB CONC 33.4 g/dL (32.0-36.0); MEAN CORPUSCULAR VOLUME 98 fl (80-97); MONOCYTES % (AUTO) 10.3 % (3-13); PLATELET COUNT 231 10^3/uL (150-450); RED BLOOD COUNT 3.79 10^6/uL (4.35-5.55); RED CELL DISTRIBUTION WIDTH 14.3 % (11.5-14.0); TOTAL CELLS COUNTED % (AUTO) 100 %; WHITE BLOOD COUNT 6.3 10^3/uL (4.0-10.5)
[2018-12-13 07:51] LABS: APPEARANCE,URINE CLEAR; BILIRUBIN,URINE NEGATIVE (NEGATIVE); COLOR,URINE YELLOW; GLUCOSE, URINE NEGATIVE (NEGATIVE); KETONES,URINE NEGATIVE (NEGATIVE); LEUKOCYTE ESTERASE,URINE NEGATIVE (NEGATIVE); NITRITE,URINE NEGATIVE (NEGATIVE); PROTEIN,URINE NEGATIVE (NEGATIVE); URINE SPECIFIC GRAVITY 1.015; UROBILINOGEN,URINE NEGATIVE mg/dL (<2.0)
[2018-12-13 08:06] LABS: ANION GAP 10 (5-19); BLOOD UREA NITROGEN 24 mg/dL (7-20); CALCIUM 9.1 mg/dL (8.4-10.2); CARBON DIOXIDE 23 mmol/L (22-30); CHLORIDE 115 mmol/L (98-107); GLUCOSE 94 mg/dL (75-110); PHOSPHORUS 3.6 mg/dL (2.5-4.5)
[2018-12-14 10:36] LABS: CREATININE URINE 102.1 mg/dL (Not Estab.)
== END ==
LOC: OD 07:09
PROVIDERS: ATTEND Internal Medicine Nephrology
DX: I12.9 Hypertensive chronic kidney disease with stage 1 through stage 4 chronic kidney disease, or unspecified chronic kidney disease (principal); N18.3 Chronic kidney disease, stage 3 (moderate); N25.81 Secondary hyperparathyroidism of renal origin; D63.1 Anemia in chronic kidney disease
CPT/HCPCS: 36415; 80069; 81001; 82043; 82306; 82570; 83970; 85025

== ENCOUNTER → 2019-06-16 | Outpatient (CLI) | payer MEDICARE ==
[2019-06-16 08:08] LABS: ANION GAP 10 (5-19); BLOOD UREA NITROGEN 42 mg/dL (7-20); CALCIUM 8.6 mg/dL (8.4-10.2); CARBON DIOXIDE 23 mmol/L (22-30); CHLORIDE 108 mmol/L (98-107); GLUCOSE 141 mg/dL (75-110); POTASSIUM 4.9 mmol/L (3.6-5.0)
[2019-06-16 08:29] LABS: ABSOLUTE BASOPHILS # (AUTO) 0.1 10^3/uL (0.0-0.2); ABSOLUTE EOSINOPHILS # (AUTO) 0.3 10^3/uL (0.0-0.6); ABSOLUTE LYMPHOCYTES (AUTO) 2.1 10^3/uL (0.5-4.7); ABSOLUTE MONOCYTES (AUTO) 0.7 10^3/uL (0.1-1.4); ABSOLUTE NEUT (AUTO) 3.7 10^3/uL (1.7-8.2); BASOPHILS % (AUTO) 0.8 % (0-2); EOSINOPHILS % (AUTO) 4.6 % (0-6); HEMATOCRIT 34.4 % (37.9-51.0); HEMOGLOBIN 11.7 g/dL (13.5-17.0); LYMPHOCYTES % (AUTO) 30.5 % (13-45); MEAN CORPUSCULAR HEMOGLOBIN 32.5 pg (27.0-33.4); MEAN CORPUSCULAR HGB CONC 34.1 g/dL (32.0-36.0); MEAN CORPUSCULAR VOLUME 95 fl (80-97); MONOCYTES % (AUTO) 10.2 % (3-13); PLATELET COUNT 227 10^3/uL (150-450); RED BLOOD COUNT 3.62 10^6/uL (4.35-5.55); RED CELL DISTRIBUTION WIDTH 14.9 % (11.5-14.0); SEGMENTED NEUTROPHILS % (AUTO) 53.9 % (42-78); TOTAL CELLS COUNTED % (AUTO) 100 %; WHITE BLOOD COUNT 6.9 10^3/uL (4.0-10.5)
== END ==
LOC: OD 07:16
PROVIDERS: ATTEND Internal Medicine Nephrology
DX: I12.9 Hypertensive chronic kidney disease with stage 1 through stage 4 chronic kidney disease, or unspecified chronic kidney disease (principal); N18.3 Chronic kidney disease, stage 3 (moderate); D63.1 Anemia in chronic kidney disease; N25.81 Secondary hyperparathyroidism of renal origin
CPT/HCPCS: 36415; 80048; 83970; 85025

== ENCOUNTER → 2019-07-02 | Outpatient (CLI) | payer MEDICARE ==
[2019-07-02 08:31] LABS: BLOOD UREA NITROGEN 32 mg/dL (7-20); CALCIUM 8.6 mg/dL (8.4-10.2); CARBON DIOXIDE 27 mmol/L (22-30); CHLORIDE 110 mmol/L (98-107); GLUCOSE 106 mg/dL (75-110); POTASSIUM 4.5 mmol/L (3.6-5.0)
[2019-07-02 08:36] LABS: ANION GAP 4 (5-19)
[2019-07-02 09:12] LABS: ADD MANUAL MICROSCOPIC YES; APPEARANCE,URINE CLEAR; BILIRUBIN,URINE NEGATIVE (NEGATIVE); COLOR,URINE STRAW; GLUCOSE, URINE NEGATIVE (NEGATIVE); KETONES,URINE NEGATIVE (NEGATIVE); LEUKOCYTE ESTERASE,URINE NEGATIVE (NEGATIVE); NITRITE,URINE NEGATIVE (NEGATIVE); PROTEIN,URINE NEGATIVE (NEGATIVE); URINE SPECIFIC GRAVITY 1.012; UROBILINOGEN,URINE NEGATIVE mg/dL (<2.0)
[2019-07-02 09:13] LABS: RBC,URINE NONE SEEN /HPF; WBC,URINE RARE /HPF
== END ==
LOC: OD 07:19
PROVIDERS: ATTEND Internal Medicine Nephrology
DX: I12.9 Hypertensive chronic kidney disease with stage 1 through stage 4 chronic kidney disease, or unspecified chronic kidney disease (principal); N17.9 Acute kidney failure, unspecified; N18.3 Chronic kidney disease, stage 3 (moderate); N25.81 Secondary hyperparathyroidism of renal origin; D63.1 Anemia in chronic kidney disease
CPT/HCPCS: 36415; 80048; 81001

== ENCOUNTER 2019-11-08 11:14 | Emergency (ER) | payer OTHER, MEDICARE ==
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
[2019-11-08 13:02] LABS: ABSOLUTE BASOPHILS # (AUTO) 0.1 10^3/uL (0.0-0.2); ABSOLUTE EOSINOPHILS # (AUTO) 0.3 10^3/uL (0.0-0.6); ABSOLUTE LYMPHOCYTES (AUTO) 1.8 10^3/uL (0.5-4.7); ABSOLUTE MONOCYTES (AUTO) 0.6 10^3/uL (0.1-1.4); ABSOLUTE NEUT (AUTO) 4.6 10^3/uL (1.7-8.2); BASOPHILS % (AUTO) 0.9 % (0-2); EOSINOPHILS % (AUTO) 3.6 % (0-6); HEMATOCRIT 37.2 % (37.9-51.0); HEMOGLOBIN 12.8 g/dL (13.5-17.0); LYMPHOCYTES % (AUTO) 24.3 % (13-45); MEAN CORPUSCULAR HGB CONC 34.4 g/dL (32.0-36.0); MEAN CORPUSCULAR VOLUME 96 fl (80-97); MONOCYTES % (AUTO) 8.3 % (3-13); PLATELET COUNT 249 10^3/uL (150-450); RED BLOOD COUNT 3.87 10^6/uL (4.35-5.55); RED CELL DISTRIBUTION WIDTH 15.4 % (11.5-14.0); SEGMENTED NEUTROPHILS % (AUTO) 62.9 % (42-78); TOTAL CELLS COUNTED % (AUTO) 100 %; WHITE BLOOD COUNT 7.3 10^3/uL (4.0-10.5)
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
[2019-11-08 13:20] LABS: ALKALINE PHOSPHATASE 278 U/L (38-126); ANION GAP 7 (5-19); ASPARTATE AMINO TRANSFERASE 27 U/L (17-59); BILIRUBIN,DIRECT 0.5 mg/dL (0.0-0.4); BILIRUBIN,TOTAL 0.8 mg/dL (0.2-1.3); BLOOD UREA NITROGEN 35 mg/dL (7-20); CALCIUM 8.8 mg/dL (8.4-10.2); CARBON DIOXIDE 24 mmol/L (22-30); CHLORIDE 111 mmol/L (98-107); GLUCOSE 111 mg/dL (75-110); POTASSIUM 4.9 mmol/L (3.6-5.0); TOTAL PROTEIN 6.6 g/dL (6.3-8.2)
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
[2019-11-08 14:49] VITALS: BP 137/74
--- NOTE | 2019-11-08 17:15 | EKG REPORT ---
SEVERITY:- ABNORMAL ECG - SINUS RHYTHM FIRST DEGREE AV BLOCK BORDERLINE LEFT AXIS DEVIATION : Confirmed by: Nyasia Go 08-Nov-2019 17:14:37
== END 2019-11-08 14:59 | disposition home or self-care (01) ==
LOC: ER 11:14
DX: S40.011A Contusion of right shoulder, initial encounter (principal); R42 Dizziness and giddiness; M25.511 Pain in right shoulder; M54.2 Cervicalgia; V49.40XA Driver injured in collision with unspecified motor vehicles in traffic accident, initial encounter
CPT/HCPCS: 36415; 70450; 71046; 72125; 80053; 84484; 85025; 93005; 93010; 99285